=== PATIENT | female | born 2000 | race Two or more races ===

== ENCOUNTER → 2024-07-29 | Outpatient (CLI) | payer OTHER ==
[2024-07-29 13:07] LABS: Basophils # (auto) 0 10 ^3/uL (0-0.2); Basophils % (auto) 0.2 % (0.0-2.0); Eosinophils # (auto) 0 10 ^3/uL (0-0.8); Eosinophils % (auto) 0.4 % (0.0-7.0); Hematocrit 41.8 % (36.0-46.0); Hemoglobin 14.3 g/dL (12.2-16.2); Lymphocytes # (auto) 2.8 10 ^3/uL (0.4-5.4); Lymphocytes % (auto) 23.1 % (10.0-50.0); Mean Corpuscular Hemoglobin 30.4 pg (28.0-32.0); Mean Corpuscular Hgb Conc. 34.2 g/dL (32.0-36.0); Mean Corpuscular Volume 89.1 fL (80.0-100.0); Monocytes # (auto) 0.8 10 ^3/uL (0-1.3); Neutrophils # (auto) 8.3 10 ^3/uL (1.6-8.6); Neutrophils % (auto) 69.3 % (37.0-80.0); Platelet Count (auto) 313 10^3/uL (140-450); Red Cell Distribution Width 13.8 % (11.8-14.3); White Blood Cell 11.9 10^3/uL (4.4-10.8)
[2024-07-29 14:20] LABS: Amphetamine Screen, Urine Neg (NEGATIVE)
[2024-07-29 14:22] LABS: Barbiturate Scree,Urine Neg (NEGATIVE); Benzodiazephine Screen, Urine Neg (NEGATIVE)
[2024-07-29 14:23] LABS: Cannabinoid Screen, Urine Neg (NEGATIVE); Cocaine Screen, Urine Neg (NEGATIVE); Opiate Scree,Urine Neg (NEGATIVE); Phencyclidine Screen, Urine Neg (NEGATIVE)
[2024-07-30 07:07] LABS: RPR Non Reactive (Non Reactive)
[2024-07-31 06:06] LABS: Chlamydia Trachomatis, NAA Negative (Negative)
[2024-07-31 06:07] LABS: Neisseria gonorrhoeae, NAA Negative (Negative)
== END | disposition home or self-care (01) ==
LOC: LAB 12:21
PROVIDERS: ATTEND Obstetrics & Gynecology
DX: Z34.80 Encounter for supervision of other normal pregnancy, unspecified trimester (principal); N39.0 Urinary tract infection, site not specified
CPT/HCPCS: 36415; 80307; 83036; 84144; 84702; 85025; 86592; 86703; 86762; 86850; 86900; 86901; 87086; 87340

== ENCOUNTER → 2024-09-14 | Outpatient (CLI) | payer OTHER | END | disposition home or self-care (01) | LOC: LAB 08:31 | PROVIDERS: ATTEND Obstetrics & Gynecology | DX: Z34.80 Encounter for supervision of other normal pregnancy, unspecified trimester (principal) | CPT/HCPCS: 82951 ==

== ENCOUNTER 2024-12-17 10:05 | Observation (INO) | payer OTHER ==
[2024-12-17] MEDS ORDERED: GLYB2.5T8 PO (10:53)
[2024-12-17] MEDS ORDERED: PREN-96 PO (10:53)
[2024-12-17] MEDS ORDERED: METF-370 PO (10:53)
--- NOTE | 2024-12-18 05:49 | DVHDS2 ---
Physician Discharge Progress N Final Diagnosis: GDM Operations or Procedures: Operations or Procedures NST,SONO Condition on Discharge: Good Disposition: Home Discharge Instructions: Diet: Consistent carbohydrate Activity: No Restrictions, As Tolerated Medications: NA Follow Up Care: Specialist: 4D Discharge Statement: "Patient was advised to return to the ER or call 911 if any headaches, dizziness, shortness of breath, chest pain, abdominal pain, bleeding, fevers, or worsening of medical condition. Patient was counseled about treatment plan, medications, possible side effects, patientverbalized understanding. All questions were answered to the best of my ability. This discharge took greater then 30 minutes in planning, reviewing documentation, counseling the patient, and discussing with other team members." Visit Coding OBGYN Date of Service: Dec 17, 2024 Billing Provider: ETIENNE BARRIENTOS DO COURT CRIER Common Visit Codes: 04616-SJS/OBS SAME DATE (HIGH) COURT CRIER Procedure Codes: 06672-16- NON-STRESS TEST ETIENNE BARRIENTOS DO Dec 18, 2024 05:49
== END 2024-12-17 11:05 | disposition home or self-care (01) ==
LOC: LDRP 10:05 → UNDOADMOB 10:05 → LDRP 10:26 → UNDODISOB 11:05
PROVIDERS: ADMIT Obstetrics & Gynecology; ATTEND Obstetrics & Gynecology
DX: O24.419 Gestational diabetes mellitus in pregnancy, unspecified control (principal); Z3A.29 29 weeks gestation of pregnancy; Z79.899 Other long term (current) drug therapy; Z98.890 Other specified postprocedural states
CPT/HCPCS: 59025; 81002; 82948; 82962; 94760; G0378

== ENCOUNTER 2024-12-21 14:54 | Observation (INO) | payer OTHER ==
[~2024-12-21 14:54] MED LIST: GLYB2.5T8 PO; METF-370 PO; PREN-96 PO
--- NOTE | 2024-12-21 16:37 | DVHDS2 ---
Physician Discharge Progress N Final Diagnosis: Gestational diabetes Operations or Procedures: Operations or Procedures NST Condition on Discharge: Stable Disposition: Home Discharge Instructions: Diet: Consistent carbohydrate Activity: No Restrictions, As Tolerated Follow Up/Referral: as scheduled Medications: N/A Follow Up Care: Discharge Statement: "Patient was advised to return to the ER or call 911 if any headaches, dizziness, shortness of breath, chest pain, abdominal pain, bleeding, fevers, or worsening of medical condition. Patient was counseled about treatment plan, medications, possible side effects, patientverbalized understanding. All questions were answered to the best of my ability. This discharge took greater then 30 minutes in planning, reviewing documentation, counseling the patient, and discussing with other team members." Visit Coding OBGYN Date of Service: Dec 21, 2024 Billing Provider: IOANA COUGHLIN DO CONTROL OFFICER Common Visit Codes: 40607-IZH/OBS SAME DATE (MOD) CONTROL OFFICER Procedure Codes: 92083-86- NON-STRESS TEST IOANA COUGHLIN DO Dec 21, 2024 16:37
== END 2024-12-21 15:52 | disposition home or self-care (01) ==
LOC: UNDOADMOB 14:54 → LDRP 14:54 → UNDODISOB 15:52
PROVIDERS: ADMIT Obstetrics & Gynecology; ATTEND Obstetrics & Gynecology
DX: O24.419 Gestational diabetes mellitus in pregnancy, unspecified control (principal); Z98.890 Other specified postprocedural states; Z79.899 Other long term (current) drug therapy; Z3A.30 30 weeks gestation of pregnancy
CPT/HCPCS: 59025; 81002; 82948; 82962; 94760; G0378

== ENCOUNTER 2024-12-24 12:39 | Observation (INO) | payer OTHER ==
--- NOTE | 2024-12-24 15:54 | DVHDS2 ---
Physician Discharge Progress N Final Diagnosis: 30 wks gest with gdm Operations or Procedures: Operations or Procedures nst30 wks,sono Condition on Discharge: Good Disposition: Home Discharge Instructions: Diet: Consistent carbohydrate Activity: No Restrictions, As Tolerated Medications: na Follow Up Care: Specialist: 1w Discharge Statement: "Patient was advised to return to the ER or call 911 if any headaches, dizziness, shortness of breath, chest pain, abdominal pain, bleeding, fevers, or worsening of medical condition. Patient was counseled about treatment plan, medications, possible side effects, patientverbalized understanding. All questions were answered to the best of my ability. This discharge took greater then 30 minutes in planning, reviewing documentation, counseling the patient, and discussing with other team members." Visit Coding OBGYN Date of Service: Dec 24, 2024 Billing Provider: ETIENNE BARRIENTOS DO LION TAMER Common Visit Codes: 92353-RJW/OBS SAME DATE (HIGH), 84177-TQL/OBS DISCH DAY >30MIN LION TAMER Consultation Codes: 47729-[id number] CONSULT <55MIN LION TAMER Procedure Codes: 48154-27- NON-STRESS TEST ETIENNE BARRIENTOS DO Dec 24, 2024 15:54
== END 2024-12-24 16:05 | disposition home or self-care (01) ==
LOC: LDRP 14:57
PROVIDERS: ADMIT Obstetrics & Gynecology; ATTEND Obstetrics & Gynecology
DX: O24.419 Gestational diabetes mellitus in pregnancy, unspecified control (principal); Z98.890 Other specified postprocedural states; Z79.899 Other long term (current) drug therapy; Z3A.30 30 weeks gestation of pregnancy
CPT/HCPCS: 59025; 81002; 82948; 82962; 94760; G0378

== ENCOUNTER 2024-12-24 15:29 | Observation (INO) | payer OTHER ==
--- NOTE | 2024-12-28 15:59 | DVHDS2 ---
Physician Discharge Progress N Final Diagnosis: GDM Secondary Diagnosis: Encounter for NST Operations or Procedures: Operations or Procedures NST Condition on Discharge: Stable Disposition: Home Discharge Instructions: Diet: Consistent carbohydrate Activity: No Restrictions, As Tolerated Follow Up/Referral: As scheduled Medications: N/A Follow Up Care: Discharge Statement: "Patient was advised to return to the ER or call 911 if any headaches, dizziness, shortness of breath, chest pain, abdominal pain, bleeding, fevers, or worsening of medical condition. Patient was counseled about treatment plan, medications, possible side effects, patientverbalized understanding. All questions were answered to the best of my ability. This discharge took greater then 30 minutes in planning, reviewing documentation, counseling the patient, and discussing with other team members." Visit Coding OBGYN Date of Service: Dec 28, 2024 Billing Provider: IOANA COUGHLIN DO MAIL OFFICER Common Visit Codes: 62427-DHS/OBS SAME DATE (MOD) MAIL OFFICER Procedure Codes: 33636-74- NON-STRESS TEST IOANA COUGHLIN DO Dec 28, 2024 15:59
== END 2024-12-28 16:01 | disposition home or self-care (01) ==
LOC: LDRP 15:29 → UNDOADMOB 12-28 15:02 → LDRP 12-28 15:02 → UNDODISOB 12-28 16:01
PROVIDERS: ADMIT Obstetrics & Gynecology; ATTEND Obstetrics & Gynecology
DX: O24.419 Gestational diabetes mellitus in pregnancy, unspecified control (principal); Z98.890 Other specified postprocedural states; Z79.899 Other long term (current) drug therapy; Z3A.31 31 weeks gestation of pregnancy
CPT/HCPCS: 59025; 81002; 82948; 82962; 94760; G0378

== ENCOUNTER 2024-12-29 14:19 | Observation (INO) | payer OTHER ==
[2024-12-29 15:46] LABS: Basophils # (auto) 0 10 ^3/uL (0-0.2); Basophils % (auto) 0.1 % (0.0-2.0); Eosinophils # (auto) 0 10 ^3/uL (0-0.8); Eosinophils % (auto) 0.4 % (0.0-7.0); Hematocrit 35.1 % (36.0-46.0); Hemoglobin 11.4 g/dL (12.2-16.2); Lymphocytes # (auto) 1.3 10 ^3/uL (0.4-5.4); Lymphocytes % (auto) 12.4 % (10.0-50.0); Mean Corpuscular Hemoglobin 27.9 pg (28.0-32.0); Mean Corpuscular Hgb Conc. 32.5 g/dL (32.0-36.0); Mean Corpuscular Volume 85.8 fL (80.0-100.0); Monocytes # (auto) 0.8 10 ^3/uL (0-1.3); Monocytes % (auto) 7.2 % (0.0-12.0); Neutrophils # (auto) 8.4 10 ^3/uL (1.6-8.6); Neutrophils % (auto) 79.9 % (37.0-80.0); Nucleated Red Blood Cells % 0.1 %; Platelet Count (auto) 291 10^3/uL (140-450); Red Blood Cells 4.09 10^6/uL (4.0-5.20); Red Cell Distribution Width 15.6 % (11.8-14.3); White Blood Cell 10.5 10^3/uL (4.4-10.8)
[2024-12-29 15:58] LABS: Alanine Aminotransferase 12 U/L (7-40); Albumin 4.1 g/dL (3.2-4.8); Alkaline Phosphatase 85 U/L (46-116); Anion Gap 9 (5-15); BUN/Creatinine Ratio 12.8 (10.0-20.0); Calcium 9.4 mg/dL (8.7-10.4); Carbon Dioxide 23 mmol/L (20-31); Chloride 104 mmol/L (98-107); Glucose 99 mg/dL (74-106); Potassium 3.7 mmol/L (3.5-5.1); Sodium 136 mmol/L (136-145); Uric Acid 3.2 mg/dL (3.1-7.8)
[2024-12-29 15:59] LABS: Bilirubin, Total 0.3 mg/dL (0.2-1.0); Total Protein 6.4 g/dL (5.7-8.2)
[2024-12-29 16:02] LABS: INR 0.97 (0.9-1.15); Partial Thromboplastin Time 28.5 SEC (24.5-34.5); Prothrombin Time 10.3 sec (9.3-11.8)
[2024-12-29 16:06] LABS: Aspartate Aminotransferase 11 U/L (13-40); Blood Urea Nitrogen 6 mg/dL (9-23)
[2024-12-29 16:32] LABS: Urine Bacteria MOD /hpf (None Seen); Urine Blood Negative /uL (Negative); Urine Budding Yeast OCCASIONAL /hpf (None Seen); Urine Clarity Turbid (Clear); Urine Color Colorless (Yellow); Urine Hyaline Cast FEW /lpf (0 - 2); Urine Protein, UAD Negative (Negative); Urine Specific Gravity 1.007 (1.001-1.035); Urine Squamous Epithelial Cell FEW /hpf (<5); Urine Urobilinogen Normal (Negative); Urine WBC 7 /HPF (0-5); Urine pH 6.5 (5.0-9.0)
[2024-12-29 16:48] LABS: Urine Protein/Creatinine Ratio 0.14
[2024-12-29 16:53] LABS: Protein, Urine < 6.0 mg/dL (1-14)
--- NOTE | 2024-12-29 19:50 | DVHDS2 ---
Physician Discharge Progress N Final Diagnosis: testing for GDM, A2 Secondary Diagnosis: rule out preE Operations or Procedures: Operations or Procedures 24yo IUP@31wks, +FM, denies UCs/LOF/VB/SAAVEDRA/vision changes/RUQ pain NST reactive (verified by 2 RNs) VSS, see chart [facility]KC/PTL/PreE precautions reviewed D/C home and return on 12/31/24 with [address] Perez consulted, agrees with POC. Urine P/C ratio: incalculable Laboratory Tests Test 12/29/24 15:00 12/29/24 15:18 12/29/24 15:20 Range/Units Urine Color Colorless Yellow Urine Clarity Turbid H Clear Urine pH 6.5 5.0-9.0 Urine Specific [place] 1.007 1.001-1.035 Urine Protein Negative Negative Urine Ketones Negative Negative Urine Blood Negative Negative /uL Urine Nitrite Negative Negative Urine Bilirubin Negative Negative Urine Urobilinogen Normal Negative mg/dL Urine Leukocyte Esterase Negative Negative /uL Urine RBC 2 0 - 4 /hpf Urine Microscopic WBC 7 H 0-5 /HPF Urine Squamous Epithelial Cells Few <5 /hpf Urine Bacteria Mod H None Seen /hpf Urine Hyaline Casts Few 0 - 2 /lpf Urine Yeast (Budding) Occasional None Seen /hpf Urine Creatinine 42.60 30.0-125.0 mg/dL -U-r-i--n-e- -H-c-a-t-e-i-n-/-A-x-c-w-i-o-n-i-n-e- -R-a-t-i-o- -0-.-1-4- Urine Glucose Normal Normal mg/dL Urine Total Protein < 6.0 1-14 mg/dL White Blood Count 10.5 4.4-10.8 10^3/uL Red Blood Count 4.09 4.0-5.20 10^6/uL Hemoglobin 11.4 L 12.2-16.2 g/dL Hematocrit 35.1 L 36.0-46.0 % Mean Corpuscular Volume 85.8 80.0-100.0 fL Mean Corpuscular Hemoglobin 27.9 L 28.0-32.0 pg Mean Corpuscular Hemoglobin Concent 32.5 32.0-36.0 g/dL Red Cell Distribution Width 15.6 H 11.8-14.3 % Platelet Count 291 140-450 10^3/uL Mean Platelet Volume 7.0 6.9-10.8 fL Neutrophils (%) (Auto) 79.9 37.0-80.0 % Lymphocytes (%) (Auto) 12.4 10.0-50.0 % Monocytes (%) (Auto) 7.2 0.0-12.0 % Eosinophils (%) (Auto) 0.4 0.0-7.0 % Basophils (%) (Auto) 0.1 0.0-2.0 % Neutrophils # (Auto) 8.4 1.6-8.6 10 ^3/uL Lymphocytes # (Auto) 1.3 0.4-5.4 10 ^3/uL Monocytes # (Auto) 0.8 0-1.3 10 ^3/uL Eosinophils # (Auto) 0 0-0.8 10 ^3/uL Basophils # (Auto) 0 0-0.2 10 ^3/uL Nucleated Red Blood Cells 0.1 % Prothrombin Time 10.3 9.3-11.8 sec Prothrombin Time INR 0.97 0.9-1.15 Activated Partial Thromboplast Time 28.5 24.5-34.5 SEC Sodium Level 136 136-145 mmol/L Potassium Level 3.7 3.5-5.1 mmol/L Chloride Level 104 98-107 mmol/L Carbon Dioxide Level 23 20-31 mmol/L Anion Gap 9 5-15 Blood Urea Nitrogen 6 L 9-23 mg/dL Creatinine 0.47 L 0.550-1.02 mg/dL Glomerular Filtration Rate Calc 135 >90 mL/min BUN/Creatinine Ratio 12.8 10.0-20.0 Serum Glucose 99 74-106 mg/dL Hemoglobin A1c 4.9 <5.7 % A1C Uric Acid 3.2 3.1-7.8 mg/dL Calcium Level 9.4 8.7-10.4 mg/dL Total Bilirubin 0.3 0.2-1.0 mg/dL Aspartate Amino Transferase (AST) 11 L 13-40 U/L Alanine Aminotransferase (ALT) 12 7-40 U/L Alkaline Phosphatase 85 46-116 U/L Total Protein 6.4 5.7-8.2 g/dL Albumin 4.1 3.2-4.8 g/dL POC Glucose 100 70-106 mg/dl Condition on Discharge: Stable Disposition: Home Discharge Instructions: Diet: Consistent carbohydrate Activity: No Restrictions, As Tolerated Follow Up/Referral: as scheduled Medications: see med list Follow Up Care: Specialist: f/u on 12/31/24 Discharge Statement: "Patient was advised to return to the ER or call 911 if any headaches, dizziness, shortness of breath, chest pain, abdominal pain, bleeding, fevers, or worsening of medical condition. Patient was counseled about treatment plan, medications, possible side effects, patientverbalized understanding. All questions were answered to the best of my ability. This discharge took greater then 30 minutes in planning, reviewing documentation, counseling the patient, and discussing with other team members." Visit Coding OBGYN Date of Service: Dec 29, 2024 Billing Provider: ALVARADO ESPINO CNM METAL WORKER Common Visit Codes: 72274-INGHKCZ OBS CARE (HIGH) ALVARADO ESPINO CNM Dec 29, 2024 19:50
== END 2024-12-29 17:16 | disposition home or self-care (01) ==
LOC: LDRP 14:19
PROVIDERS: ADMIT Obstetrics & Gynecology; ATTEND Obstetrics & Gynecology
DX: O24.419 Gestational diabetes mellitus in pregnancy, unspecified control (principal); R79.1 Abnormal coagulation profile; Z3A.31 31 weeks gestation of pregnancy; Z79.899 Other long term (current) drug therapy; Z98.890 Other specified postprocedural states
CPT/HCPCS: 36415; 59025; 80053; 81001; 81002; 82570; 82948; 82962; 83036; 84156; 84550; 85025; 85610; 85730; 94760; G0378

== ENCOUNTER 2024-12-31 12:02 | Observation (INO) | payer OTHER ==
[~2024-12-31] VITALS: Ht 170.2 cm; Wt 128.4 kg
[2024-12-31 18:47] LABS: Protein, Urine < 6.0 mg/dL (1-14)
[2024-12-31 18:49] LABS: Creatinine, Urine 94.32 mg/dL (30.0-125.0); Urine Protein/Creatinine Ratio 0.06
--- NOTE | 2025-01-01 09:48 | DVHDS2 ---
Physician Discharge Progress N Final Diagnosis: gdm 31wks,pih Operations or Procedures: Operations or Procedures nst 31 wks,pih ,gdm Condition on Discharge: Good Disposition: Home Discharge Instructions: Diet: Regular Activity: Light activity Medications: na Follow Up Care: Specialist: 3d Discharge Statement: "Patient was advised to return to the ER or call 911 if any headaches, dizziness, shortness of breath, chest pain, abdominal pain, bleeding, fevers, or worsening of medical condition. Patient was counseled about treatment plan, medications, possible side effects, patientverbalized understanding. All questions were answered to the best of my ability. This discharge took greater then 30 minutes in planning, reviewing documentation, counseling the patient, and discussing with other team members." Visit Coding OBGYN Date of Service: Dec 31, 2024 Billing Provider: ETIENNE BARRIENTOS DO EDUCATION AND OUTREACH COORDINATOR Common Visit Codes: 20584-PEAAZCU INP/OBS CARE (HIGH) EDUCATION AND OUTREACH COORDINATOR Procedure Codes: 40778-12- NON-STRESS TEST ETIENNE BARRIENTOS DO Jan 01, 2025 09:48
== END 2024-12-31 17:18 | disposition home or self-care (01) ==
LOC: LDRP 15:10 → UNDOADMOB 15:10 → LDRP 15:20 → UNDODISOB 17:18
PROVIDERS: ADMIT Obstetrics & Gynecology; ATTEND Obstetrics & Gynecology
DX: O13.3 Gestational [pregnancy-induced] hypertension without significant proteinuria, third trimester (principal); O24.419 Gestational diabetes mellitus in pregnancy, unspecified control; Z3A.31 31 weeks gestation of pregnancy; Z79.899 Other long term (current) drug therapy; Z98.890 Other specified postprocedural states
CPT/HCPCS: 59025; 81002; 82570; 82948; 82962; 84156; 94760; G0378

== ENCOUNTER 2025-01-04 07:49 | Observation (INO) | payer OTHER ==
--- NOTE | 2025-01-04 15:56 | DVH ---
BIOPHYSICAL PROFILE HISTORY: gdma1 Comparison Study: None TECHNIQUE: Multiple real-time grayscale sonographic images through the gravid uterus of the fetus wi th duplex Doppler color flow and M-mode spectral analysis FINDINGS: BIOPHYSICAL PROFILE: breathing score: 2 movement score: 2 tone score: 2 Quantitative TYSON score: 2 (TYSON: 19.7 Cm.) Total score: 8 The cervix is not visualized Single live fetus in cephalic presentation. heart rate 132 beats per minute. Cephalic placenta without previa or abruption IMPRESSION: Biophysical profile score: 8
--- NOTE | 2025-01-04 16:29 | DVHDS2 ---
Physician Discharge Progress N Final Diagnosis: GDMA2 Operations or Procedures: Operations or Procedures NST/BPP TYSON PATIENT: CARLITOS ARENAS NACCT: [id number] UNIT: [id number] : 2000 LOC: [facility] ROOM / BED: TRIAGE2 / A AGE / SEX: 24 / F ADM STATUS: ADM IN SERVICE 1514 ORDERING PHYSICIAN: IOANA COUGHLIN DO PROCEDURE(s): BPP - BIOPHYSICAL PROFILE REASON: gdma1 ORDER NUMBER(s): [id number], ACCESSION NUMBER(s): [id number] BIOPHYSICAL PROFILE HISTORY: gdma1 Comparison Study: None TECHNIQUE: Multiple real-time grayscale sonographic images through the gravid uterus of the fetus with duplex Doppler color flow and M-mode spectral analysis FINDINGS: BIOPHYSICAL PROFILE: breathing score: 2 movement score: 2 tone score: 2 Quantitative TYSON score: 2 (TYSON: 19.7 Cm.) Total score: 8 The cervix is not visualized Single live fetus in cephalic presentation. heart rate 132 beats per minute. Cephalic placenta without previa or abruption IMPRESSION: Biophysical profile score: 8 Condition on Discharge: Stable Disposition: Home Discharge Instructions: Diet: Consistent carbohydrate Activity: No Restrictions, As Tolerated Follow Up/Referral: as scheduled Medications: no new meds Follow Up Care: Discharge Statement: "Patient was advised to return to the ER or call 911 if any headaches, dizziness, shortness of breath, chest pain, abdominal pain, bleeding, fevers, or worsening of medical condition. Patient was counseled about treatment plan, medications, possible side effects, patientverbalized understanding. All questions were answered to the best of my ability. This discharge took greater then 30 minutes in planning, reviewing d ocumentation, counseling the patient, and discussing with other team members." Visit Coding OBGYN Date of Service: Jan 04, 2025 Billing Provider: IOANA COUGHLIN DO DIVISION SUPERINTENDENT Common Visit Codes: 27850-XVQ/OBS SAME DATE (HIGH) DIVISION SUPERINTENDENT Procedure Codes: 68851-85- NON-STRESS TEST IOANA COUGHLIN DO Jan 04, 2025 16:29
== END 2025-01-04 16:24 | disposition home or self-care (01) ==
LOC: LDRP 15:11 → UNDOADMOB 15:11 → LDRP 15:15 → UNDODISOB 16:24
PROVIDERS: ADMIT Obstetrics & Gynecology; ATTEND Obstetrics & Gynecology
DX: O24.419 Gestational diabetes mellitus in pregnancy, unspecified control (principal); Z98.890 Other specified postprocedural states; Z79.899 Other long term (current) drug therapy; Z3A.32 32 weeks gestation of pregnancy
CPT/HCPCS: 76818; 81002; 82948; 82962; 94760; G0378; 59025

== ENCOUNTER 2025-01-07 06:31 | Observation (INO) | payer OTHER ==
[2025-01-07 15:46] LABS: Basophils # (auto) 0 10 ^3/uL (0-0.2); Basophils % (auto) 0.3 % (0.0-2.0); Eosinophils # (auto) 0 10 ^3/uL (0-0.8); Eosinophils % (auto) 0.4 % (0.0-7.0); Hematocrit 34.5 % (36.0-46.0); Hemoglobin 11.3 g/dL (12.2-16.2); Lymphocytes # (auto) 1.8 10 ^3/uL (0.4-5.4); Lymphocytes % (auto) 17.5 % (10.0-50.0); Mean Corpuscular Hemoglobin 28.1 pg (28.0-32.0); Mean Corpuscular Hgb Conc. 32.7 g/dL (32.0-36.0); Monocytes # (auto) 0.8 10 ^3/uL (0-1.3); Monocytes % (auto) 8.1 % (0.0-12.0); Neutrophils # (auto) 7.7 10 ^3/uL (1.6-8.6); Neutrophils % (auto) 73.7 % (37.0-80.0); Platelet Count (auto) 293 10^3/uL (140-450); Red Blood Cells 4.01 10^6/uL (4.0-5.20); Red Cell Distribution Width 15.7 % (11.8-14.3); White Blood Cell 10.4 10^3/uL (4.4-10.8)
[2025-01-07 15:50] LABS: Urine Bacteria FEW /hpf (None Seen); Urine Blood Negative /uL (Negative); Urine Clarity Turbid (Clear); Urine Color Yellow (Yellow); Urine Mucus FEW (None Seen); Urine Protein, UAD 1+ (Negative); Urine Specific Gravity 1.031 (1.001-1.035); Urine Squamous Epithelial Cell FEW /hpf (<5); Urine Urobilinogen Normal (Negative); Urine WBC 6 /HPF (0-5)
--- NOTE | 2025-01-07 15:50 | DVH ---
BIOPHYSICAL PROFILE HISTORY: GDMA2 TECHNIQUE: Multiple transabdominal real-time grayscale sonographic images through the gravid uterus of the fetus with duplex Doppler color flow and M-mode spectral analysis FINDINGS: BIOPHYSICAL PROFILE: breathing score: 2 movement score: 2 tone score: 2 Quantitative TYSON score: 2 (TYSON: 21.6 Cm.) Total score: 8/8 The cervix not measured Single live fetus in cephalic presentation. heart rate 155 beats per minute. Anterior Grade 2 placenta without previa or abruption Single live fetus at 32 weeks 4 days Biophysical profile score 8/8 corresponding to an JIMMY of 02/28/2025 IMPRESSION: 1. Biophysical profile score: 8/8
[2025-01-07 15:54] LABS: Protein, Urine 16.1 mg/dL (1-14)
[2025-01-07 15:57] LABS: Creatinine, Urine 181.08 mg/dL (30.0-125.0); Urine Protein/Creatinine Ratio 0.09
[2025-01-07 15:59] LABS: INR 0.97 (0.9-1.15); Partial Thromboplastin Time 27.2 SEC (24.5-34.5); Prothrombin Time 10.3 sec (9.3-11.8)
[2025-01-07 16:19] LABS: Alanine Aminotransferase 14 U/L (7-40); Albumin 4.2 g/dL (3.2-4.8); Alkaline Phosphatase 96 U/L (46-116); Anion Gap 9 (5-15); BUN/Creatinine Ratio 15.2 (10.0-20.0); Calcium 9.5 mg/dL (8.7-10.4); Carbon Dioxide 22 mmol/L (20-31); Chloride 106 mmol/L (98-107); Glucose 91 mg/dL (74-106); Sodium 137 mmol/L (136-145); Total Protein 6.8 g/dL (5.7-8.2)
[2025-01-07 16:36] LABS: Aspartate Aminotransferase 13 U/L (13-40); Bilirubin, Total 0.2 mg/dL (0.2-1.0); Blood Urea Nitrogen 7 mg/dL (9-23)
--- NOTE | 2025-01-08 15:08 | DVHDS2 ---
Physician Discharge Progress N Final Diagnosis: gdm,32wks Operations or Procedures: Operations or Procedures nst32 wks,sono Condition on Discharge: Good Disposition: Home Discharge Instructions: Diet: Regular, Consistent carbohydrate Activity: No Restrictions, As Tolerated Medications: na Follow Up Care: Specialist: 3d Discharge Statement: "Patient was advised to return to the ER or call 911 if any headaches, dizziness, shortness of breath, chest pain, abdominal pain, bleeding, fevers, or worsening of medical condition. Patient was counseled about treatment plan, medications, possible side effects, patientverbalized understanding. All questions were answered to the best of my ability. This discharge took greater then 30 minutes in planning, reviewing documentation, counseling the patient, and discussing with other team members." Visit Coding OBGYN Date of Service: Jan 07, 2025 Billing Provider: ETIENNE BARRIENTOS DO EKG/ECG TECHNICIAN Common Visit Codes: 74778-[id number] INP/OBS CARE (HIGH) EKG/ECG TECHNICIAN Procedure Codes: 74910-99- NON-STRESS TEST ETIENNE BARRIENTOS DO Jan 08, 2025 15:07
== END 2025-01-07 17:15 | disposition home or self-care (01) ==
LOC: LDRP 14:55 → UNDOADMOB 14:55 → LDRP 15:05
PROVIDERS: ADMIT Obstetrics & Gynecology; ATTEND Obstetrics & Gynecology
DX: O24.419 Gestational diabetes mellitus in pregnancy, unspecified control (principal); R79.1 Abnormal coagulation profile; Z3A.32 32 weeks gestation of pregnancy; Z79.899 Other long term (current) drug therapy
CPT/HCPCS: 36415; 76818; 80053; 81001; 82570; 82962; 84156; 84550; 85025; 85610; 85730; 94760; G0378; 59025

== ENCOUNTER 2025-01-11 11:50 | Observation (INO) | payer OTHER ==
--- NOTE | 2025-01-11 17:09 | DVH ---
EXAM: US BIOPHYSICAL PROFILE HISTORY: GDM COMPARISON: US BIOPHYSICAL PROFILE on DOS: 01/07/25, US BIOPHYSICAL PROFILE on DOS: 01/04/25 TECHNIQUE: Multiple transabdominal real-time grayscale sonographic images through the gravid uterus of the fetus with duplex Doppler color flow and M-mode spectral analysis Findings/Impression: Single live intrauterine in vertex presentation with heart rate of 139 bpm. Biophysical profile was performed with 2 points for respirations, 2 points for movement, 2 points for tone and 2 points for amniotic fluid index. Biophysical profile score of 8/8. Amniotic fluid is within the upper limits of normal with TYSON 22.3 cm and MVP 8.0 cm. Normal TYSON (5-25 cm) Normal MVP (2-8 cm)
--- NOTE | 2025-01-12 00:13 | DVHDS2 ---
Discharge Summary Date of Admission Jan 11, 2025 at 15:18 Date of Discharge: Jan 11, 2025 Admitting Diagnosis 33 wks GDMA2 Wounds: none Labs/Diagnostic Data: Laboratory Results Test 01/11/25 17:10 POC Glucose 78 mg/dl (70-106) Brief Hx & Hospital Course: nst bpp Consults/Reason for consult none Operations or Procedures none Condition at Discharge: Good Final Diagnosis/Problems List GDMA 2 33 wks Discharge Disposition: Home SNF Discharge Will this Physician continue t: No Discharge Instruct/Medications Diet: Consistent carbohydrate Activity: No Restrictions, As Tolerated Activity comment: pelvic rest kick counts labor precautions Discharge Statement: "Patient was advised to return to the ER or call 911 if any headaches, dizziness, shortness of breath, chest pain, abdominal pain, bleeding, fevers, or worsening of medical condition. Patient was counseled about treatment plan, medications, possible side effects, patientverbalized understanding. All questions were answered to the best of my ability. This discharge took greater then 30 minutes in planning, reviewing documentation, counseling the patient, and discussing with other team members." ASSESSMENT ASSESSMENT Assessment Visit Coding OBGYN Date of Service: Jan 11, 2025 Billing Provider: RU RAPHAEL DO VIDEO TAPE DUPLICATOR Common Visit Codes: 64559-FTA/OBS SAME DATE (LOW), 83684-ZGH/OBS SAME DATE (MOD), 07026-MCY/OBS SAME DATE (HIGH) VIDEO TAPE DUPLICATOR Procedure Codes: 96244-78- NON-STRESS TEST RU RAPHAEL DO Jan 12, 2025 00:13
== END 2025-01-11 17:29 | disposition home or self-care (01) ==
LOC: UNDOADMOB 15:18 → LDRP 15:18 → UNDODISOB 17:29
PROVIDERS: ADMIT Obstetrics & Gynecology; ATTEND Obstetrics & Gynecology
DX: O24.419 Gestational diabetes mellitus in pregnancy, unspecified control (principal); Z98.890 Other specified postprocedural states; Z79.899 Other long term (current) drug therapy; Z3A.33 33 weeks gestation of pregnancy
CPT/HCPCS: 76818; 81002; 82948; 82962; G0378; 59025; 76819

== ENCOUNTER 2025-01-14 06:21 | Observation (INO) | payer OTHER ==
--- NOTE | 2025-01-14 17:19 | DVH ---
EXAM: US BIOPHYSICAL PROFILE HISTORY: GDMA2 COMPARISON: US BIOPHYSICAL PROFILE on DOS: 01/11/25, US BIOPHYSICAL PROFILE on DOS: 01/07/25, US BIOPHYS ICAL PROFILE on DOS: 01/04/25 TECHNIQUE: Multiple transabdominal real-time grayscale sonographic images through the gravid uterus of the fetus with duplex Doppler color flow and M-mode spectral analysis Findings/Impression: Single live intrauterine in vertex presentation with heart rate of 126 bpm. Biophysical profile was performed with 2 points for respirations, 2 points for movement, 2 points for tone and 2 points for amniotic fluid index. Biophysical profile score of 8/8. Amniotic fluid is within the upper limits of normal with TYSON 23.7 cm and MVP 7.5 cm. Normal TYSON (5-25 cm) Normal MVP (2-8 cm)
--- NOTE | 2025-01-14 21:35 | DVHDS2 ---
Physician Discharge Progress N Final Diagnosis: testing for GDM, A2 Operations or Procedures: Operations or Procedures 24yo IUP@33.4wks VSS NST reactive FKC/PTL precautions reviewed Dr. Perez consulted, agrees with POC. Other Interventions Other Interventions [address] [address] Ph: [phone] DIAGNOSTIC IMAGING Diagnostic Imaging Report : [id number] Signed PATIENT: CARLITOS ARENAS NACCT: [id number] UNIT: [id number] : 2000 LOC: [facility] ROOM / BED: LD1 / A AGE / SEX: 24 / F ADM STATUS: ADM IN SERVICE 1610 ORDERING PHYSICIAN: ALVARADO ESPINO CNM PROCEDURE(s): BPP - BIOPHYSICAL PROFILE REASON: GDMA2 ORDER NUMBER(s): [id number], ACCESSION NUMBER(s): [id number] EXAM: US BIOPHYSICAL PROFILE HISTORY: GDMA2 COMPARISON: US BIOPHYSICAL PROFILE on DOS: 01/11/25, US BIOPHYSICAL PROFILE on DOS: 01/07/25, US BIOPHYSICAL PROFILE on DOS: 01/04/25 TECHNIQUE: Multiple transabdominal real-time grayscale sonographic images through the gravid uterus of the fetus with duplex Doppler color flow and M-mode spectral analysis Findings/Impression: Single live intrauterine in vertex presentation with heart rate of 126 bpm. Biophysical profile was performed with 2 points for respirations, 2 points for movement, 2 points for tone and 2 points for amniotic fluid i ndex. Biophysical profile score of 8/8. Amniotic fluid is within the upper limits of normal with TYSON 23.7 cm and MVP 7.5 cm. Normal TYSON (5-25 cm) Normal MVP (2-8 cm) ATED BY: MELONIE PULIDO DO DICTATED DATE/TIME: 01/14/251715 SIGNED BY: MELONIE PULIDO DO SIGNED DATE/TIME: 01/14/251715 CC: Condition on Discharge: Stable Disposition: Home Discharge Instructions: Diet: Consistent carbohydrate Activity: No Restrictions, As Tolerated Medications: see med list Follow Up Care: Specialist: f/u in 3 days Discharge Statement: "Patient was advised to return to the ER or call 911 if any headaches, dizziness, shortness of breath, chest pain, abdominal pain, bleeding, fevers, or worsening of medical condition. Patient was counseled about treatment plan, medications, possible side effects, patientverbalized understanding. All questions were answered to the best of my ability. This discharge took greater then 30 minutes in planning, reviewing documentation, counseling the patient, and discussing with other team members." Visit Coding OBGYN Date of Service: Jan 14, 2025 Billing Provider: ALVARADO ESPINO CNM MACHINE ENGINEER Common Visit Codes: 01144-ZGEWJFQ OBS CARE (HIGH) MACHINE ENGINEER Procedure Codes: 34343-63- NON-STRESS TEST ALVARADO ESPINO CNM Jan 14, 2025 21:35
== END 2025-01-14 17:35 | disposition home or self-care (01) ==
LOC: LDRP 15:53
PROVIDERS: ADMIT Obstetrics & Gynecology; ATTEND Obstetrics & Gynecology
DX: O24.419 Gestational diabetes mellitus in pregnancy, unspecified control (principal); Z98.890 Other specified postprocedural states; Z79.899 Other long term (current) drug therapy; Z3A.33 33 weeks gestation of pregnancy
CPT/HCPCS: 76818; 81002; 82948; 82962; 94760; G0378; 59025; 76819

== ENCOUNTER 2025-01-18 12:11 | Observation (INO) | payer OTHER ==
--- NOTE | 2025-01-18 12:31 | DVHDS2 ---
Physician Discharge Progress N Final Diagnosis: GDMA2 Secondary Diagnosis: Encounter for surveillance Operations or Procedures: Operations or Procedures NST/BPP/ TYSON Condition on Discharge: Stable Disposition: Home Discharge Instructions: Diet: Consistent carbohydrate Activity: Light activity Follow Up/Referral: as scheduled Medications: N/A Follow Up Care: Discharge Statement: "Patient was advised to return to the ER or call 911 if any headaches, dizziness, shortness of breath, chest pain, abdominal pain, bleeding, fevers, or worsening of medical condition. Patient was counseled about treatment plan, medications, possible side effects, patientverbalized understanding. All questions were answered to the best of my ability. This discharge took greater then 30 minutes in planning, reviewing documentation, counseling the patient, and discussing with other team members." Visit Coding OBGYN Date of Service: Jan 18, 2025 Billing Provider: IOANA COUGHLIN DO RESPIRATORY CARE SPECIALIST Common Visit Codes: 62154-QXA/OBS SAME DATE (HIGH) RESPIRATORY CARE SPECIALIST Procedure Codes: 48249-99- NON-STRESS TEST IOANA COUGHLIN DO Jan 18, 2025 12:31
--- NOTE | 2025-01-18 12:57 | DVH ---
BIOPHYSICAL PROFILE HISTORY: gdma2 TECHNIQUE: Multiple transabdominal real-time grayscale sonographic images through the gravid uterus of the fetus with duplex Doppler color flow and M-mode spectral analysis FINDINGS: BIOPHYSICAL PROFILE: breathing score: 2 movement score: 2 tone score: 2 Quantitative TYSON score: 2 (TYSON: 27 Cm.) Total score: 8 The cervix not well visualized. Single live fetus in cephalic presentation. heart rate 138 beats per minute. Anterior placenta without previa or abruption IMPRESSION: Biophysical profile score: 8 Amniotic fluid index of 27 cm.
== END 2025-01-18 13:18 | disposition home or self-care (01) ==
LOC: LDRP 12:11 → UNDOADMOB 12:11 → LDRP 12:20
PROVIDERS: ADMIT Obstetrics & Gynecology; ATTEND Obstetrics & Gynecology
DX: O24.419 Gestational diabetes mellitus in pregnancy, unspecified control (principal); Z3A.34 34 weeks gestation of pregnancy; Z87.891 Personal history of nicotine dependence
CPT/HCPCS: 76819; 81002; 82948; 82962; 94760; G0378

== ENCOUNTER 2025-01-21 06:19 | Observation (INO) | payer OTHER ==
--- NOTE | 2025-01-21 12:02 | DVH ---
BIOPHYSICAL PROFILE HISTORY: GDMA2 Comparison: 01/18/2025 TECHNIQUE: Multiple transabdominal real-time grayscale sonographic images through the gravid uterus of the fetus with duplex Doppler color flow and M-mode spectral analysis FINDINGS: BIOPHYSICAL PROFILE: breathing score: 2/2 movement score: 2 tone score: 2/2 Quantitative TYSON score: 2/2 (TYSON: 22.8 Cm.) Total score: 8/8 The cervix closed Single live fetus in cephalic presentation. heart rate 138 beats per minute. anterior placenta without previa or abruption IMPRESSION: 1. Biophysical profile score: 8/8 unchanged from previous exam. Amniotic fluid index formerly measure d as 27 cm now is 22.8 cm
--- NOTE | 2025-01-22 13:02 | DVHDS2 ---
Physician Discharge Progress N Final Diagnosis: iup at 34 wks with gdm morbid obesity Operations or Procedures: Operations or Procedures nst 34 wks,sono Condition on Discharge: Good Disposition: Home Discharge Instructions: Diet: Consistent carbohydrate Activity: Light activity Medications: na Follow Up Care: Specialist: 1w Discharge Statement: "Patient was advised to return to the ER or call 911 if any headaches, dizziness, shortness of breath, chest pain, abdominal pain, bleeding, fevers, or worsening of medical condition. Patient was counseled about treatment plan, medications, possible side effects, patientverbalized understanding. All questions were answered to the best of my ability. This discharge took greater then 30 minutes in planning, reviewing documentation, counseling the patient, and discussing with other team members." Visit Coding OBGYN Date of Service: Jan 21, 2025 Billing Provider: ETIENNE BARRIENTOS DO FIBRE CEMENT MOULDER Common Visit Codes: 04105-ATNCAKM INP/OBS CARE (HIGH) FIBRE CEMENT MOULDER Procedure Codes: 40283-72- NON-STRESS TEST ETIENNE BARRIENTOS DO Jan 22, 2025 13:01
== END 2025-01-21 12:31 | disposition home or self-care (01) ==
LOC: LDRP 11:15 → UNDOADMOB 11:15 → LDRP 11:19
PROVIDERS: ADMIT Obstetrics & Gynecology; ATTEND Obstetrics & Gynecology
DX: O24.419 Gestational diabetes mellitus in pregnancy, unspecified control (principal); O99.213 Obesity complicating pregnancy, third trimester; E66.01 Morbid (severe) obesity due to excess calories; Z3A.34 34 weeks gestation of pregnancy; Z79.899 Other long term (current) drug therapy
CPT/HCPCS: 76818; 81002; 82948; 82962; 94760; G0378; 76819

== ENCOUNTER 2025-01-25 15:14 | Observation (INO) | payer OTHER ==
--- NOTE | 2025-01-25 16:40 | DVH ---
BIOPHYSICAL PROFILE HISTORY: gdma2 Comparison: 01/21/2025 TECHNIQUE: Multiple transabdominal real-time grayscale sonographic images through the gravid uterus of the fetus with duplex Doppler color flow and M-mode spectral analysis FINDINGS: BIOPHYSICAL PROFILE: breathing score: 2/2 movement score: 2/2 tone score: 2/2 Quantitative TYSON score: 2/2 (TYSON: 19 Cm.) Total score: 8/8 The cervix closed Single live fetus in cephalic presentation. heart rate 131 beats per minute. anterior placenta without previa or abruption IMPRESSION: 1. Biophysical profile score: 8/8 2. Amniotic fluid volume formerly measuring 22.8 cm now measures 19 cm
--- NOTE | 2025-01-25 23:58 | DVHDS2 ---
Discharge Summary Date of Admission Jan 25, 2025 at 15:14 Date of Discharge: Jan 25, 2025 Admitting Diagnosis GDM A1 35.1 weeks Labs/Diagnostic Data: Laboratory Results Test 01/25/25 15:56 POC Glucose 109 mg/dl (70-106) Brief Hx & Hospital Course: here for GDM A2 monitoring only Condition at Discharge: Good Final Diagnosis/Problems List 35 weeks GDMA2 Discharge Disposition: Home Discharge Instruct/Medications Diet: Consistent carbohydrate Activity: No Restrictions, As Tolerated Discharge Statement: "Patient was advised to return to the ER or call 911 if any headaches, dizzin ess, shortness of breath, chest pain, abdominal pain, bleeding, fevers, or worsening of medical condition. Patient was counseled about treatment plan, medications, possible side effects, patientverbalized understanding. All questions were answered to the best of my ability. This discharge took greater then 30 minutes in planning, reviewing documentation, counseling the patient, and discussing with other team members." DME: Diagnosis: here for GDM A2 monitoring only; reasuring ASSESSMENT ASSESSMENT Assessment Visit Coding OBGYN Date of Service: Jan 25, 2025 Billing Provider: RU RAPHAEL DO RESEARCH SPECIALIST Common Visit Codes: 53975-XPF/OBS SAME DATE (LOW), 81293-DQB/OBS SAME DATE (MOD), 97298-QZK/OBS SAME DATE (HIGH) RESEARCH SPECIALIST Procedure Codes: 22575-SGM DEL INCLUDING RU RAPHAEL DO Jan 25, 2025 23:58
== END 2025-01-25 16:49 | disposition home or self-care (01) ==
LOC: UNDOADMOB 15:14 → LDRP 15:14 → UNDODISOB 16:49
PROVIDERS: ADMIT Obstetrics & Gynecology; ATTEND Obstetrics & Gynecology
DX: O24.419 Gestational diabetes mellitus in pregnancy, unspecified control (principal); Z98.890 Other specified postprocedural states; Z79.899 Other long term (current) drug therapy; Z3A.35 35 weeks gestation of pregnancy
CPT/HCPCS: 76819; 81002; 82948; 82962; 94760; G0378

== ENCOUNTER 2025-01-28 08:14 | Observation (INO) | payer OTHER ==
--- NOTE | 2025-01-28 08:57 | DVH ---
CLINICAL HISTORY: Gestational diabetes. COMPARISON: US BIOPHYSICAL PROFILE on DOS: 01/25/25, US BIOPHYSICAL PROFILE on DOS: 01/21/25, US BIOPHY SICAL PROFILE on DOS: 01/18/25 TECHNIQUE: biophysical profile was performed. Transabdominal sonographic images of the fetus we re obtained. FINDINGS: The fetus is in cephalic position. heart rate measures 118 BPM. Amniotic fluid index measures 22.2 cm. The placenta is anterior in position without visualized evidence for placenta previ a or abruption. BPP profile is an overall score of 8/8, with 2/2 points for breathing, with at least one episode of breathing over a 30 second duration during a 30 minute observation, 2/2 points for m ovements, with 3 or more discrete body or limb movements, 2/2 points for tone, with one or more episodes of extremity extension with return to flexion, or opening and closing of hand, and 2/ 2 points for amniotic fluid, with at least 1 pocket of amniotic fluid that measures 2 cm in 2 perpend icular planes. IMPRESSION: 1. BPP score of 8/8. 2. Amniotic fluid index is 22.2.
--- NOTE | 2025-01-29 13:07 | DVHDS2 ---
Physician Discharge Progress N Final Diagnosis: GDM,MORBID OBESITY 35WKS Operations or Procedures: Operations or Procedures NST 35WKS,SONO Condition on Discharge: Good Disposition: Home Discharge Instructions: Diet: Regular, Consistent carbohydrate Activity: No Restrictions, As Tolerated Medications: NA Follow Up Care: Specialist: 4D Discharge Statement: "Patient was advised to return to the ER or call 911 if any headaches, dizziness, shortness of breath, chest pain, abdominal pain, bleeding, fevers, or worsening of medical condition. Patient was counseled about treatment plan, medications, possible side effects, patientverbalized understanding. All questions were answered to the best of my ability. This discharge took greater then 30 minutes in planning, reviewing documentation, counseling the patient, and discussing with other team members." Visit Coding OBGYN Date of Service: Jan 29, 2025 Billing Provider: ETIENNE BARRIENTOS DO MILLING MACHINIST Common Visit Codes: 74893-[id number] INP/OBS CARE (HIGH) MILLING MACHINIST Procedure Codes: 56913-37- NON-STRESS TEST ETIENNE BARRIENTOS DO Jan 29, 2025 13:07
== END 2025-01-28 09:09 | disposition home or self-care (01) ==
LOC: UNDOADMOB 08:14 → LDRP 08:14 → UNDODISOB 09:09
PROVIDERS: ADMIT Obstetrics & Gynecology; ATTEND Obstetrics & Gynecology
DX: O24.419 Gestational diabetes mellitus in pregnancy, unspecified control (principal); O99.213 Obesity complicating pregnancy, third trimester; E66.01 Morbid (severe) obesity due to excess calories; Z3A.35 35 weeks gestation of pregnancy; Z79.899 Other long term (current) drug therapy; Z98.890 Other specified postprocedural states
CPT/HCPCS: 76819; 81002; 82948; 82962; 94760; G0378

== ENCOUNTER → 2025-01-28 | Outpatient (CLI) | payer OTHER ==
[2025-01-28 10:05] LABS: Basophils # (auto) 0 10 ^3/uL (0-0.2); Basophils % (auto) 0.2 % (0.0-2.0); Eosinophils # (auto) 0 10 ^3/uL (0-0.8); Eosinophils % (auto) 0.4 % (0.0-7.0); Hemoglobin 11.1 g/dL (12.2-16.2); Lymphocytes # (auto) 1.6 10 ^3/uL (0.4-5.4); Lymphocytes % (auto) 16.3 % (10.0-50.0); Mean Corpuscular Hemoglobin 28.8 pg (28.0-32.0); Mean Corpuscular Hgb Conc. 33.8 g/dL (32.0-36.0); Mean Corpuscular Volume 85.2 fL (80.0-100.0); Monocytes # (auto) 0.6 10 ^3/uL (0-1.3); Monocytes % (auto) 6.7 % (0.0-12.0); Neutrophils # (auto) 7.3 10 ^3/uL (1.6-8.6); Neutrophils % (auto) 76.4 % (37.0-80.0); Platelet Count (auto) 289 10^3/uL (140-450); Red Blood Cells 3.87 10^6/uL (4.0-5.20); Red Cell Distribution Width 16.1 % (11.8-14.3); White Blood Cell 9.6 10^3/uL (4.4-10.8)
[2025-01-29 17:07] LABS: Chlamydia Trachomatis, NAA Negative (Negative); Neisseria gonorrhoeae, NAA Negative (Negative)
== END | disposition home or self-care (01) ==
LOC: LAB 09:32
PROVIDERS: ATTEND Obstetrics & Gynecology
DX: Z34.80 Encounter for supervision of other normal pregnancy, unspecified trimester (principal); Z72.51 High risk heterosexual behavior; Z3A.00 Weeks of gestation of pregnancy not specified
CPT/HCPCS: 36415; 85025; 86780; 86850; 86870; 86900; 86901

== ENCOUNTER 2025-02-01 08:10 | Observation (INO) | payer OTHER ==
--- NOTE | 2025-02-01 09:10 | DVH ---
BIOPHYSICAL PROFILE HISTORY: GDMA2 TECHNIQUE: Multiple transabdominal real-time grayscale sonographic images through the gravid uterus of the fetus with duplex Doppler color flow and M-mode spectral analysis FINDINGS: BIOPHYSICAL PROFILE: breathing score: 2 movement score: 2 tone score: 2 Quantitative TYSON score: 2 (TYSON: 22 Cm.) Total score: 8 The cervix was not seen Single live fetus in cephalic presentation. heart rate 135 beats per minute. Grade II anterior placenta without previa or abruption IMPRESSION: Biophysical profile score: 8/8
--- NOTE | 2025-02-02 14:41 | DVHDS2 ---
Physician Discharge Progress N Final Diagnosis: gdm 36wks Operations or Procedures: Operations or Procedures nst,sono Condition on Discharge: Good Disposition: Home Discharge Instructions: Diet: Consistent carbohydrate Activity: No Restrictions, As Tolerated Medications: na Follow Up Care: Specialist: 3d Discharge Statement: "Patient was advised to return to the ER or call 911 if any headaches, dizziness, shortness of breath, chest pain, abdominal pain, bleeding, fevers, or worsening of medical condition. Patient was counseled about treatment plan, medications, possible side effects, patientverbalized understanding. All questions were answered to the best of my ability. This discharge took greater then 30 minutes in planning, reviewing documentati on, counseling the patient, and discussing with other team members." Visit Coding OBGYN Date of Service: Feb 01, 2025 Billing Provider: ETIENNE BARRIENTOS DO SUPERVISOR TUNNEL HEADING Common Visit Codes: 49637-[id number] INP/OBS CARE (HIGH) SUPERVISOR TUNNEL HEADING Procedure Codes: 89715-56- NON-STRESS TEST ETIENNE BARRIENTOS DO Feb 02, 2025 14:40
== END 2025-02-01 09:31 | disposition home or self-care (01) ==
LOC: LDRP 08:10
PROVIDERS: ADMIT Obstetrics & Gynecology; ATTEND Obstetrics & Gynecology
DX: O24.419 Gestational diabetes mellitus in pregnancy, unspecified control (principal); Z98.890 Other specified postprocedural states; Z79.899 Other long term (current) drug therapy; Z3A.36 36 weeks gestation of pregnancy
CPT/HCPCS: 76818; 81002; 82948; 82962; 94760; G0378; 76819

== ENCOUNTER 2025-02-04 08:25 | Observation (INO) | payer OTHER ==
[~2025-02-04] VITALS: Ht 170.2 cm; Wt 127.0 kg
--- NOTE | 2025-02-04 09:32 | DVH ---
Procedure: US BIOPHYSICAL PROFILE 02/04/2025 09:09 AM Indication: GDMA1 Comparison: US BIOPHYSICAL PROFILE on DOS: 02/01/25, US BIOPHYSICAL PROFILE on DOS: 01/28/25, US BIOPHY SICAL PROFILE on DOS: 01/25/25 Technique: Sonogram of gravid uterus utilizing grayscale and color techniques. FINDINGS: Single living intrauterine gestation. Presentation: Cephalic Placenta: Anterior heart rate: 138 bpm TYSON: 21.3 cm, DVP: 6.3 cm Maternal cervix: Not visualized Biophysical Profile: breathing score: 2 movement score: 2 tone: 2 Quantitative TYSON score: 2 Total score: 8/8 IMPRESSION: 1. Single living as above. 2. Biophysical profile score: 8/8.
--- NOTE | 2025-02-09 14:33 | DVHDS2 ---
Physician Discharge Progress N Final Diagnosis: gdm 36wks Operations or Procedures: Operations or Procedures nst,sono Condition on Discharge: Good Disposition: Home Discharge Instructions: Diet: Consistent carbohydrate Activity: No Restrictions, As Tolerated Medications: na Follow Up Care: Specialist: 3d Discharge Statement: "Patient was advised to return to the ER or call 911 if any headaches, dizziness, shortness of breath, chest pain, abdominal pain, bleeding, fevers, or worsening of medical condition. Patient was counseled about treatment plan, medications, possible side effects, patientverbalized understanding. All questions were answered to the best of my ability. This discharge took greater then 30 minutes in planning, reviewing documentati on, counseling the patient, and discussing with other team members." Visit Coding OBGYN Date of Service: Feb 04, 2025 Billing Provider: ETIENNE BARRIENTOS DO SIGNAL OPERATOR LINGUIST Common Visit Codes: 39044-[id number] OBS CARE (HIGH) SIGNAL OPERATOR LINGUIST Procedure Codes: 73015-02- NON-STRESS TEST ETIENNE BARRIENTOS DO Feb 09, 2025 14:33
== END 2025-02-04 09:53 | disposition home or self-care (01) ==
LOC: LDRP 08:25
PROVIDERS: ADMIT Obstetrics & Gynecology; ATTEND Obstetrics & Gynecology
DX: O24.419 Gestational diabetes mellitus in pregnancy, unspecified control (principal); Z3A.36 36 weeks gestation of pregnancy; Z79.899 Other long term (current) drug therapy; Z98.890 Other specified postprocedural states
CPT/HCPCS: 76818; 81002; 82948; 82962; 94760; G0378; 76819

== ENCOUNTER 2025-02-08 06:40 | Observation (INO) | payer OTHER ==
--- NOTE | 2025-02-08 12:47 | DVH ---
BIOPHYSICAL PROFILE HISTORY: GDMA2 TECHNIQUE: Multiple transabdominal real-time grayscale sonographic images through the gravid uterus of the fetus with duplex Doppler color flow and M-mode spectral analysis FINDINGS: BIOPHYSICAL PROFILE: breathing score: 2 movement score: 2 tone score: 2 Quantitative TYSON score: 2 (TYSON: 22 Cm.) Total score: 8 The cervix was not seen Single live fetus in cephalic presentation. heart rate 152 beats per minute. IMPRESSION: Biophysical profile score: 8/8
--- NOTE | 2025-02-09 12:30 | DVHDS2 ---
Physician Discharge Progress N Final Diagnosis: gdm 37wks Operations or Procedures: Operations or Procedures [id number],sono Condition on Discharge: Good Disposition: Home Discharge Instructions: Diet: Regular Activity: Light activity Medications: na Follow Up Care: Specialist: 2d Discharge Statement: "Patient was advised to return to the ER or call 911 if any headaches, dizz iness, shortness of breath, chest pain, abdominal pain, bleeding, fevers, or worsening of medical condition. Patient was counseled about treatment plan, medications, possible side effects, patientverbalized understanding. All questions were answered to the best of my ability. This discharge took greater then 30 minutes in planning, reviewing documentation, counseling the patient, and discussing with other team members." Visit Coding OBGYN Date of Service: Feb 08, 2025 Billing Provider: ETIENNE BARRIENTOS DO RESERVATION CLERK Common Visit Codes: 25075-[id number] OBS CARE (HIGH), 55691-ZHGUHSP INP/OBS CARE (HIGH) ETIENNE BARRIENTOS DO Feb 09, 2025 12:30
== END 2025-02-08 13:13 | disposition home or self-care (01) ==
LOC: LDRP 11:55
PROVIDERS: ADMIT Obstetrics & Gynecology; ATTEND Obstetrics & Gynecology
DX: O24.419 Gestational diabetes mellitus in pregnancy, unspecified control (principal); Z98.890 Other specified postprocedural states; Z79.899 Other long term (current) drug therapy; Z3A.37 37 weeks gestation of pregnancy
CPT/HCPCS: 76818; 81002; 82948; 94760; G0378; 76819

== ENCOUNTER 2025-02-11 08:45 | Observation (INO) | payer OTHER ==
--- NOTE | 2025-02-11 10:18 | DVH ---
BIOPHYSICAL PROFILE HISTORY: GDMA2 TECHNIQUE: Multiple transabdominal real-time grayscale sonographic images through the gravid uterus of the fetus with duplex Doppler color flow and M-mode spectral analysis FINDINGS: BIOPHYSICAL PROFILE: breathing score: 2 movement score: 2 tone score: 2 Quantitative TYSON score: 2 (TYSON: 23.6 Cm.) Total score: 8 Single live fetus in cephalic presentation. heart rate 142 beats per minute. IMPRESSION: Biophysical profile score: 8/8
--- NOTE | 2025-02-12 08:26 | DVHDS2 ---
Physician Discharge Progress N Final Diagnosis: gdm 37wks Operations or Procedures: Operations or Procedures nst,sono Other Interventions Other Interventions pt wants induction due to uncontrolled bs ,risk of rds d/w pt all options d/w pt .pt fully understands and wants to proceed with induction Condition on Discharge: Good Disposition: Home Discharge Instructions: Diet: Consistent carbohydrate Activity: No Restrictions, As Tolerated Medications: na Follow Up Care: Specialist: 1d Discharge Statement: "Patient was advised to return to the ER or call 911 if any headaches, dizziness, shortness of breath, chest pain, abdominal pain, bleeding, fevers, or worsening of medical condition. Patient was counseled about treatment plan, medications, possible side effects, patientverbalized understanding. All questions were answered to the best of my ability. This discharge took greater then 30 minutes in planning, reviewing documentation, counseling the patient, and discussing with other team members." Visit Coding OBGYN Date of Service: Feb 11, 2025 Billing Provider: ETIENNE BARRIENTOS DO CODE ENFORCEMENT SUPERVISOR Common Visit Codes: 86714-[id number] OBS CARE (HIGH) CODE ENFORCEMENT SUPERVISOR Procedure Codes: 17156-42- NON-STRESS TEST ETIENNE BARRIENTOS DO Feb 12, 2025 08:26
== END 2025-02-11 09:50 | disposition home or self-care (01) ==
LOC: LDRP 08:45
PROVIDERS: ADMIT Obstetrics & Gynecology; ATTEND Obstetrics & Gynecology
DX: O24.419 Gestational diabetes mellitus in pregnancy, unspecified control (principal); Z3A.37 37 weeks gestation of pregnancy; Z79.899 Other long term (current) drug therapy
CPT/HCPCS: 76818; 81002; 82948; 82962; 94760; G0378; 76819

== ENCOUNTER 2025-02-12 07:33 | Inpatient (IN) | payer OTHER ==
[~2025-02-12] VITALS: Ht 170.2 cm; Wt 121.6 kg
[2025-02-12] MEDS ORDERED: miSOPROStol 50 MCG per PRE-CUT 1/2 TAB PO PRN (19:15)
[2025-02-12] MEDS ORDERED: LACTATED RINGER'S 1,000 ML IV SCH (19:15)
[2025-02-12] MEDS ORDERED: NALBUPHINE HCL 10 MG/1ml INJECTION IV PRN (19:15)
[2025-02-12] MEDS ORDERED: LIDOCAINE 2%HCL (LOCAL ANESTH.) INJ 20ML MDV IJ PRN (19:15)
[2025-02-12] MEDS ORDERED: WITCH HAZEL-GLYCERIN PAD TOP PRN (19:15)
[2025-02-12] MEDS ORDERED: DERMOPLAST 60ML BOTTLE TOP PRN (19:15)
[2025-02-12] MEDS ORDERED: NALBUPHINE HCL 10 MG/1ml INJECTION IM PRN (19:15)
[2025-02-12] MEDS ORDERED: PHISODERM TOP SOLN 240ML BTL TOP PRN (19:15)
[2025-02-12] MEDS ORDERED: PENICILLIN G POT 5MIL/D5 50ML 50 ML IV ONE (19:30)
[2025-02-12 19:44] LABS: Basophils # (auto) 0 10 ^3/uL (0-0.2); Basophils % (auto) 0.1 % (0.0-2.0); Eosinophils # (auto) 0 10 ^3/uL (0-0.8); Eosinophils % (auto) 0.3 % (0.0-7.0); Hematocrit 35.1 % (36.0-46.0); Hemoglobin 11.7 g/dL (12.2-16.2); Lymphocytes % (auto) 21.3 % (10.0-50.0); Mean Corpuscular Hemoglobin 28.2 pg (28.0-32.0); Mean Corpuscular Hgb Conc. 33.3 g/dL (32.0-36.0); Mean Corpuscular Volume 84.5 fL (80.0-100.0); Monocytes # (auto) 0.7 10 ^3/uL (0-1.3); Monocytes % (auto) 7.5 % (0.0-12.0); Neutrophils # (auto) 6.5 10 ^3/uL (1.6-8.6); Neutrophils % (auto) 70.8 % (37.0-80.0); Nucleated Red Blood Cells % 0.1 %; Platelet Count (auto) 294 10^3/uL (140-450); Red Blood Cells 4.15 10^6/uL (4.0-5.20); Red Cell Distribution Width 16.4 % (11.8-14.3); White Blood Cell 9.2 10^3/uL (4.4-10.8)
[2025-02-12 19:59] LABS: INR 0.96 (0.9-1.15); Prothrombin Time 10.2 sec (9.3-11.8)
[2025-02-12 20:02] LABS: Alanine Aminotransferase 17 U/L (7-40); Albumin 4.4 g/dL (3.2-4.8); Anion Gap 9 (5-15); Aspartate Aminotransferase 14 U/L (13-40); BUN/Creatinine Ratio 14.1 (10.0-20.0); Bilirubin, Total 0.3 mg/dL (0.2-1.0); Calcium 9.8 mg/dL (8.7-10.4); Carbon Dioxide 23 mmol/L (20-31); Chloride 105 mmol/L (98-107); Glucose 99 mg/dL (74-106); Sodium 137 mmol/L (136-145)
[2025-02-12 20:04] LABS: Alkaline Phosphatase 153 U/L (46-116); Blood Urea Nitrogen 9 mg/dL (9-23); Potassium 3.5 mmol/L (3.5-5.1)
[2025-02-12 20:20] LABS: Urine Bacteria FEW /hpf (None Seen); Urine Blood Negative /uL (Negative); Urine Clarity Turbid (Clear); Urine Color Yellow (Yellow); Urine Mucus FEW (None Seen); Urine Protein, UAD TRACE (Negative); Urine Specific Gravity 1.032 (1.001-1.035); Urine Squamous Epithelial Cell FEW /hpf (<5); Urine Urobilinogen 3 mg/dL (Negative); Urine WBC 6 /HPF (0-5)
[2025-02-12 20:26] LABS: Amphetamine Screen, Urine Neg (NEGATIVE); Barbiturate Scree,Urine Neg (NEGATIVE); Benzodiazephine Screen, Urine Neg (NEGATIVE); Cannabinoid Screen, Urine Neg (NEGATIVE); Cocaine Screen, Urine Neg (NEGATIVE); Opiate Scree,Urine Neg (NEGATIVE); Phencyclidine Screen, Urine Neg (NEGATIVE)
[2025-02-12] MEDS ORDERED: ACCU-CHEK COMFORT CURVE STRIP VI SCH (22:00)
--- NOTE | 2025-02-12 22:13 | DVH ---
BIOPHYSICAL PROFILE HISTORY: GESTATIONAL DIABETES TECHNIQUE: Multiple transabdominal real-time grayscale sonographic images through the gravid uterus of the fetus with duplex Doppler color flow and M-mode spectral analysis FINDINGS: BIOPHYSICAL PROFILE: breathing score: 2 movement score: 2 tone score: 2 Quantitative TYSON score: 2 (TYSON: 26.24 Cm.) Total score: 8/8 The cervix not measured Single live fetus in cephalic presentation. heart rate 123 beats per minute. Anterior Grade 2 placenta without previa or abruption Single live fetus at or 05/23/2025 Biophysical profile score 8/8 corresponding to an JIMMY of 02/28/2025 Estimated weight not calculated g IMPRESSION: 1. Biophysical profile score: 8/8 HS:Y
[2025-02-12] MEDS ORDERED: PENICILLIN G POTASSIUM 2,500,000 UNITS in D5W 5% 50 ML IV SCH (23:30)
--- NOTE | 2025-02-13 07:38 | DVHDS2 ---
Physician Discharge Progress N Final Diagnosis: gdma2 37wks Operations or Procedures: Operations or Procedures nst,sono Condition on Discharge: Good Disposition: Home Discharge Instructions: Diet: Regular, Consistent carbohydrate Activity: No Restrictions, As Tolerated Medications: na Follow Up Care: Specialist: 3d Discharge Statement: "Patient was advised to return to the ER or call 911 if any headaches, dizziness, shortness of breath, chest pain, abdominal pain, bleeding, fevers, or worsening of medical condition. Patient was counseled about treatment plan, medications, possible side effects, patientverbalized understanding. All questions were answered to the best of my ability. This discharge took greater then 30 minutes in planning, reviewing documentation, counseling the patient, and discussing with other team members." Visit Coding OBGYN Date of Service: Feb 12, 2025 Billing Provider: ETIENNE BARRIENTOS DO MOVEMENT ASSEMBLER Common Visit Codes: 75417-DHAYHYN OBS CARE (HIGH) MOVEMENT ASSEMBLER Procedure Codes: 41895-10- NON-STRESS TEST ETIENNE BARRIENTOS DO Feb 13, 2025 07:38
== END 2025-02-12 22:20 | disposition home or self-care (01) | DRG 833 ==
LOC: LDRP 18:59
PROVIDERS: ADMIT Obstetrics & Gynecology; ATTEND Obstetrics & Gynecology
DX: O24.415 Gestational diabetes mellitus in pregnancy, controlled by oral hypoglycemic drugs (principal); Z3A.37 37 weeks gestation of pregnancy
CPT/HCPCS: 36415; 76819; 80053; 80307; 81001; 82948; 82962; 85025; 85610; 85730; 86780; 86803; 86850; 86870; 86900; 86901; 94760; 96360; G0378; J7060

== ENCOUNTER 2025-02-14 06:18 | Observation (INO) | payer OTHER ==
--- NOTE | 2025-02-14 09:38 | DVH ---
BIOPHYSICAL PROFILE HISTORY: gdma2 Comparison Study: None available at time of dictation. TECHNIQUE: Multiple real-time grayscale sonographic images through the gravid uterus of the fetus wit h duplex doppler color flow and M-mode spectral analysis FINDINGS: BIOPHYSICAL PROFILE: breathing score: 2 movement score: 2 tone score: 2 Quantitative TYSON score: 2 (TYSON: 26.9 cm.) Total score: 8/8 Single live fetus in cephalic presentation. heart rate 134 beats per minute. Grade anterior placenta without previa or abruption Biophysical profile score 8/8 corresponding to an JIMMY of 02/28/25 IMPRESSION: Biophysical profile score: 8/8
[2025-02-14] MEDS ORDERED: GLYB2.5T8 PO (10:12)
[2025-02-14] MEDS ORDERED: METF-370 PO (10:13)
[2025-02-14] MEDS ORDERED: PREN-96 PO (10:13)
--- NOTE | 2025-02-15 06:27 | DVHDS2 ---
Discharge Summary Date of Admission Feb 14, 2025 at 08:48 Date of Discharge: Feb 14, 2025 Labs/Diagnostic Data: Laboratory Results Test 02/14/25 09:39 POC Glucose 142 mg/dl (70-106) Brief Hx & Hospital Course: reassuring Condition at Discharge: Good Final Diagnosis/Problems List GDMA2 doing well Discharge Disposition: Home Discharge Instruct/Medications Diet: Consistent carbohydrate Activity: Light activity (kick counts labor precautions) Follow Up/Referral: as scheduled Discharge Statement: "Patient was advised to return to the ER or call 911 if any headaches, dizziness, shortness of breath, chest pain, abdominal pain, bleeding, fevers, or worsening of medical condition. Patient was counseled about treatment plan, medications, possible side effects, patientverbalized understanding. All questions were answered to the best of my ability. This discharge took greater then 30 minutes in planning, reviewing documentation, counseling the patient, and discussing with other team members." ASSESSMENT ASSESSMENT Assessment Visit Coding OBGYN Date of Service: Feb 14, 2025 Billing Provider: RU RAPHAEL DO PRIVATE EQUITY ASSOCIATE Common Visit Codes: 63971-LOJ/OBS SAME DATE (LOW), 08425-JRE/OBS SAME DATE (MOD), 73113-DOV/OBS SAME DATE (HIGH) PRIVATE EQUITY ASSOCIATE Procedure Codes: 35484-16- NON-STRESS TEST RU RAPHAEL DO Feb 15, 2025 06:27
== END 2025-02-14 10:23 | disposition home or self-care (01) ==
LOC: LDRP 08:48
PROVIDERS: ADMIT Obstetrics & Gynecology; ATTEND Obstetrics & Gynecology
DX: O24.419 Gestational diabetes mellitus in pregnancy, unspecified control (principal); Z3A.38 38 weeks gestation of pregnancy; Z79.899 Other long term (current) drug therapy
CPT/HCPCS: 76818; 81002; 82948; 82962; G0378; 76819

== ENCOUNTER 2025-02-18 06:23 | Observation (INO) | payer OTHER ==
--- NOTE | 2025-02-18 09:50 | DVH ---
BIOPHYSICAL PROFILE HISTORY: GDMA2 Comparison Study: None available at time of dictation. TECHNIQUE: Multiple real-time grayscale sonographic images through the gravid uterus of the fetus wi th duplex Doppler color flow and M-mode spectral analysis FINDINGS: BIOPHYSICAL PROFILE: breathing score: 2 movement score: 2 tone score: 2 Quantitative TYSON score: 2 (TYSON: 24.6 Cm.) Total score: 8/8 Single live fetus in cephalic presentation. heart rate 157 beats per minute. Grade anterior placenta without previa or abruption Biophysical profile score 8/8 corresponding to an JIMMY of 02/28/25 IMPRESSION: Biophysical profile score: 8/8
--- NOTE | 2025-02-20 08:15 | DVHDS2 ---
Physician Discharge Progress N Final Diagnosis: gdm 38wks Operations or Procedures: Operations or Procedures nst,sono Condition on Discharge: Good Disposition: Home Discharge Instructions: Diet: Regular Activity: No Restrictions, As Tolerated Medications: na Follow Up Care: Specialist: 4d Discharge Statement: "Patient was advised to return to the ER or call 911 if any headaches, dizziness, shortness of breath, chest pain, abdominal pain, bleeding, fevers, or worsening of medical condition. Patient was counseled about treatment plan, medications, possible side effects, patientverbalized understanding. All questions were answered to the best of my ability. This discharge took greater then 30 minutes in planning, reviewing documentation, counseling the patient, and discussing with other team members." Visit Coding OBGYN Date of Service: Feb 18, 2025 Billing Provider: ETIENNE BARRIENTOS DO DOOR TO DOOR SELLING DISTRIBUTOR Common Visit Codes: 19343-OGONPJK INP/OBS CARE (HIGH) DOOR TO DOOR SELLING DISTRIBUTOR Procedure Codes: 04001-63- NON-STRESS TEST ETIENNE BARRIENTOS DO Feb 20, 2025 08:15
== END 2025-02-18 10:20 | disposition home or self-care (01) ==
LOC: UNDOADMOB 08:52 → LDRP 08:52 → UNDODISOB 10:20
PROVIDERS: ADMIT Obstetrics & Gynecology; ATTEND Obstetrics & Gynecology
DX: O24.419 Gestational diabetes mellitus in pregnancy, unspecified control (principal); Z3A.38 38 weeks gestation of pregnancy; Z79.899 Other long term (current) drug therapy
CPT/HCPCS: 76818; 81002; 82948; 82962; 94760; G0378; 76819

== ENCOUNTER 2025-02-19 07:04 | Inpatient (IN) | payer OTHER ==
[~2025-02-19] VITALS: Ht 170.2 cm; Wt 127.5 kg
[2025-02-19] MEDS ORDERED: NALBUPHINE HCL 10 MG/1ml INJECTION IM PRN (21:45)
[2025-02-19] MEDS ORDERED: LIDOCAINE 2%HCL (LOCAL ANESTH.) INJ 20ML MDV IJ PRN (21:45)
[2025-02-19] MEDS ORDERED: NALBUPHINE HCL 10 MG/1ml INJECTION IV PRN (21:45)
[2025-02-19] MEDS ORDERED: PENICILLIN G POT 5MIL/D5 50ML 50 ML IV ONE (21:45)
[2025-02-19 22:44] LABS: Basophils # (auto) 0 10 ^3/uL (0-0.2); Basophils % (auto) 0.1 % (0.0-2.0); Eosinophils # (auto) 0 10 ^3/uL (0-0.8); Eosinophils % (auto) 0.5 % (0.0-7.0); Hematocrit 34.1 % (36.0-46.0); Hemoglobin 11.5 g/dL (12.2-16.2); Lymphocytes # (auto) 1.9 10 ^3/uL (0.4-5.4); Lymphocytes % (auto) 19.4 % (10.0-50.0); Mean Corpuscular Hgb Conc. 33.6 g/dL (32.0-36.0); Mean Corpuscular Volume 83.5 fL (80.0-100.0); Monocytes # (auto) 0.9 10 ^3/uL (0-1.3); Neutrophils # (auto) 7.1 10 ^3/uL (1.6-8.6); Nucleated Red Blood Cells % 0.1 %; Platelet Count (auto) 306 10^3/uL (140-450); Red Blood Cells 4.09 10^6/uL (4.0-5.20); Red Cell Distribution Width 16.8 % (11.8-14.3)
[2025-02-19 22:56] LABS: Urine Bacteria FEW /hpf (None Seen); Urine Blood Negative /uL (Negative); Urine Clarity Turbid (Clear); Urine Color Yellow (Yellow); Urine Mucus FEW (None Seen); Urine Protein, UAD TRACE (Negative); Urine Specific Gravity 1.028 (1.001-1.035); Urine Squamous Epithelial Cell FEW /hpf (<5); Urine Urobilinogen Normal (Negative); Urine WBC 4 /HPF (0-5)
--- NOTE | 2025-02-19 22:57 | DVH ---
OB ULTRASOUND obstetrical ultrasound limited HISTORY: PRESENTING PART TECHNIQUE: Obstetrical ultrasound limited Multiple real-time grayscale sonographic images of the pelv is with duplex Doppler color flow, spectral and M-mode analysis. TRANSDUCERS: Transabdominal FINDINGS: The cervix measures IUP single live fetus at weeks 5 days. heart rate detected at 155 beats per minute. TYSON 25.6 cm Placenta anterior with no findings of previa or abruption. Placental grade is 3. presentation cephalic IMPRESSION: 1. presentation cephalic 2. Placenta anterior no findings of previa or abruption 3. TYSON 25.6 cm; TYSON from 02/18/2025 24.6 cm; 02/14/2025 ; 26.9 cm 4. FHR: 155 beats per minute
[2025-02-19 22:59] LABS: INR 0.97 (0.9-1.15); Partial Thromboplastin Time 26.8 SEC (24.5-34.5); Prothrombin Time 10.3 sec (9.3-11.8)
[2025-02-19 23:00] LABS: Alanine Aminotransferase 12 U/L (7-40); Anion Gap 10 (5-15); BUN/Creatinine Ratio 19.6 (10.0-20.0); Blood Urea Nitrogen 9 mg/dL (9-23); Calcium 9.6 mg/dL (8.7-10.4); Carbon Dioxide 22 mmol/L (20-31); Chloride 105 mmol/L (98-107); Glucose 86 mg/dL (74-106); Potassium 3.9 mmol/L (3.5-5.1); Sodium 137 mmol/L (136-145); Total Protein 6.6 g/dL (5.7-8.2)
[2025-02-19 23:04] LABS: Opiate Scree,Urine Neg (NEGATIVE)
[2025-02-19 23:05] LABS: Alkaline Phosphatase 151 U/L (46-116); Aspartate Aminotransferase 12 U/L (13-40); Bilirubin, Total 0.3 mg/dL (0.2-1.0)
[2025-02-19 23:05] LABS: Amphetamine Screen, Urine Neg (NEGATIVE); Barbiturate Scree,Urine Neg (NEGATIVE); Benzodiazephine Screen, Urine Neg (NEGATIVE); Cannabinoid Screen, Urine Neg (NEGATIVE); Cocaine Screen, Urine Neg (NEGATIVE); Phencyclidine Screen, Urine Neg (NEGATIVE)
[2025-02-20] VITALS (12 sets, daily range): BP systolic 104–119; BP diastolic 52–66; PULSE 66–86; RESP 12–18; TEMP 97.4–98.8; O2SAT 95–100
[2025-02-20] MEDS: DERMOPLAST 60ML BOTTLE TOP PRN (00:45)
[2025-02-20] MEDS: WITCH HAZEL-GLYCERIN PAD TOP PRN (00:45)
[2025-02-20] MEDS: miSOPROStol 50 MCG per PRE-CUT 1/2 TAB PO PRN (00:45)
[2025-02-20] MEDS: PHISODERM TOP SOLN 240ML BTL TOP PRN (00:45)
[2025-02-20] MEDS: MAALOX PLUS or MAALOX 30 ML PO ONE (01:44)
[2025-02-20] MEDS ORDERED: PENICILLIN G POTASSIUM 2,500,000 UNITS in D5W 5% 50 ML IV SCH (01:45)
[2025-02-20] MEDS: LACTATED RINGER'S 1,000 ML IV SCH (01:46)
--- NOTE | 2025-02-20 04:13 | DVHHP ---
ADMIT DATE: 02/19/2025 CHIEF COMPLAINT: Here for induction of labor secondary to GDMA2. HISTORY OF PRESENT ILLNESS: The patient is a 24-year-old 3, para 1 with EDC 02/28/2025, estimated gestational age of 39 weeks, admitted for induction of labor. The patient has GDMA2. The patient denies having any rupture of membrane or bleeding. Estimated weight of the baby is 93. The patient was given the option of having primary due to GDMA2 and macrosomia, possibility of shoulder dystocia, short term and long-term morbidity, mortality for both baby and her. Discussed with patient possibility of palsy. Other complications, bleeding, infection discussed with patient. The patient fully understands. All questions answered. The patient wishes to proceed with a trial of vaginal delivery. PAST MEDICAL HISTORY: GDMA2. PAST SURGICAL HISTORY: None. SOCIAL HISTORY: None. FAMILY HISTORY: None. OBSTETRIC AND GYNECOLOGIC HISTORY: One vaginal delivery, 1 spontaneous AB. GBS positive. ALLERGIES: No known drug allergies. REVIEW OF SYSTEMS: Consistent with HPI. PHYSICAL EXAMINATION: VITAL SIGNS: Stable, afebrile. HEENT: Within normal limits. CARDIOVASCULAR: Regular rate and rhythm. LUNGS: Clear to auscultation. BREASTS: Symmetrical. No masses. ABDOMEN: Gravid, positive heart. Estimated weight 93. EXTREMITIES: No clubbing, cyanosis or edema. PELVIC: Cervix 1 cm ____, -3. IMPRESSION: * Intrauterine at 39 weeks with GDMA2. * Macrosomia. * Morbid obesity. PLAN: The patient wishes to have induction of labor, trial of vaginal delivery. She was advised to undergo primary , but patient refused. The patient fully understands possibility of shoulder dystocia, palsy, other complications with shoulder dystocia. Possibility of injury or demise discussed with patient. All questions answered. The patient wishes to proceed with planned procedure. DO GAVIN Dave/HEM/TERESA TID: [id number] RECEIPT: [id number]
--- NOTE | 2025-02-20 07:53 | DVHPN2 ---
Chief Complaints Patient reports: No new complaints Nursing reports: No new complaints Objective Medications Current Medications Medications (Trade) Dose Ordered Sig/Christa Route PRN Reason Start Time Stop Time Status Last Admin Benzocaine (Dermoplast) 1 applic PRN PRN TOP PERINEAL AREA DISCOMFORT 02/19/25 21:45 02/20/25 00:45 Lactated Ringer's 1,000 ml @ 125 mls/hr Q8H IV 02/19/25 21:45 02/20/25 01:47 Lidocaine HCl (Xylocaine) 40 ml ONCE PRN IJ PERINEAL AREA DISCOMFORT 02/19/25 21:45 Misoprostol (Cytotec) 50 mcg Q4HPRN PRN PO CERVICAL RIPENING 02/19/25 22:30 02/20/25 05:10 Nalbuphine HCl (Nubain) 10 mg Q4HP PRN IM MODERATE PAIN (4-6 PAIN SCALE) 02/19/25 21:45 Nalbuphine HCl (Nubain) 10 mg Q4HP PRN IV MODERATE PAIN (4-6 PAIN SCALE) 02/19/25 21:45 Penicillin G Potassium [id number] units/Dextrose 50 ml @ 100 mls/hr Q4H IV 02/20/25 01:45 Sodium Lauryl Sulfate (Phisoderm) 240 ml PRN PRN TOP PERINEAL AREA DISCOMFORT 02/19/25 21:45 02/20/25 00:45 Witch Ankita (Tucks) 1 pad PRN PRN TOP PERINEAL AREA DISCOMFORT 02/19/25 21:45 02/20/25 00:45 Others ve-2cm/50/-2 Studies Laboratory Tests 02/19/25 22:17 Test 02/19/25 22:17 Range/Units Serum Glucose 86 74-106 mg/dL Ass/Plan Assessment iol for gdm Plan moreno inserted rec cytotec Visit Coding OBGYN Date of Service: Feb 20, 2025 Billing Provider: ETIENNE BARRIENTOS DO PORTFOLIO MGR Common Visit Codes: 49624-JAAMFTM INP/OBS CARE (HIGH) PORTFOLIO MGR Procedure Codes: 99669-74- NON-STRESS TEST ETIENNE BARRIENTOS DO Feb 20, 2025 07:53
[2025-02-20] MEDS ORDERED: IBUP-1456 PO (08:58)
[2025-02-20] MEDS ORDERED: DOCU-94 PO (08:58)
[2025-02-20] MEDS ORDERED: HYDR-4072 PO (08:58)
[2025-02-20] MEDS ORDERED: CEPH500T PO (08:58)
[2025-02-20] MEDS: ceFAZolin 2 GM/D5W50ml 50 ML IV ONE (09:04)
--- NOTE | 2025-02-20 09:22 | DVHHP ---
ADMIT DATE: 02/19/2025 CHIEF COMPLAINT: Nonreassuring heart tracing, repetitive decels. HISTORY OF PRESENT ILLNESS: The patient is a 24-year-old 2 para 1 with EDC 02/28/2025, estimated gestational age of 39 weeks, admitted for induction of labor secondary to GDMA2. The weight was 9 pounds 3 ounces. The patient was given option of primary due to GDMA2 and macrosomia but the patient refused and wanted trial of labor. She received two Cytotec. Islas balloon was inserted into the cervix. Shortly after that, the patient was having repetitive decels. Subsequently, the patient is taken for primary low transverse section. The patient agrees. Islas catheter was removed from the cervix. We will proceed with primary low transverse section secondary to nonreassuring heart tracing, fetus at risk. PAST MEDICAL HISTORY: GDMA2. PAST SURGICAL HISTORY: None SOCIAL HISTORY: None FAMILY HISTORY: None OBSTETRIC AND GYNECOLOGIC HISTORY: One spontaneous AB. One vaginal delivery. REVIEW OF SYSTEMS: Consistent with HPI. ALLERGIES: No known drug allergies. PHYSICAL EXAMINATION: VITAL SIGNS: Stable. Afebrile. HEENT: Within normal limits. CARDIOVASCULAR: Regular rate and rhythm. LUNGS: Clear to auscultation. BREASTS: No masses. ABDOMEN: Obese. PELVIC: 1.5 cm, 50%, -2. EXTREMITIES: No clubbing, cyanosis, or edema. IMPRESSION: * Intrauterine at 39 weeks, induction of labor for gestational diabetes mellitus. * Nonreassuring heart tracing, fetus at risk. * Morbid obesity. PLAN: Primary low transverse section. Informed consent obtained. Risks and complications of surgery including infection, bleeding, hematoma formation, injury to bowel, bladder, surrounding organs, possibility of DVT, pulmonary embolism, risk of anesthesia discussed with the patient. Options reviewed. All questions answered. Possibility of infection and bleeding discussed with the patient. The patient wishes to proceed with planned procedure. DO IDANIA Dave TID: [id number] RECEIPT: [id number]
[2025-02-20] MEDS ORDERED: ONDANSETRON HCL 4 MG/2 ML VIAL ONE (10:30)
[2025-02-20] MEDS ORDERED: DexAMETHasone SOD PHOS 10MG/1ML VIAL INJ ONE (10:30)
[2025-02-20] MEDS ORDERED: oxyTOCIN 10 UNIT/ML 10ML VIAL ONE (10:30)
[2025-02-20] MEDS ORDERED: MORPHINE SULF PF 5 MG/10 ML VIAL ONE (10:31)
[2025-02-20] MEDS ORDERED: fentaNYL CITRATE 100 MCG/2 ML VL ONE (10:31)
[2025-02-20] MEDS ORDERED: SODIUM CHLORIDE LOCK 10 ML ONE ×2 (10:46→10:55)
[2025-02-20] MEDS ORDERED: ceFAZolin 1GM VL ONE (10:46)
[2025-02-20] MEDS ORDERED: PHENYLEPHRINE HCL 10 MG/ML VL ONE (10:56)
[2025-02-20] MEDS ORDERED: ONDANSETRON HCL 4 MG/2 ML VIAL IV PRN (11:00)
[2025-02-20] MEDS ORDERED: LACT. RINGERS/OXYTOCIN 20UNITS 1,000 ML IV ONE (11:00)
[2025-02-20] MEDS ORDERED: ceFAZolin 1GM/50ML 50 ML IV SCH ×3 (11:00→15:00)
--- NOTE | 2025-02-20 11:32 | DVHOP2 ---
Operative Report DATE OF OPERATION: 02/20/25 PREOPERATIVE DIAGNOSES: Term 39wks iolfor gdma2,morbid obesity,polyhydramnia.nonreassuring fht fetus at risk,macrosomia POSTOPERATIVE DIAGNOSES: same,nuchal cord and arm cord SURGEON: Mehnaz Perez D.O./gurmeet ANESTHESIOLOGIST: javier TYPE OF ANESTHESIA : spinal CONSENT: The patient was informed of the risks and benefits of the procedure. The patient was informed of the risks and benefits of the procedure. These in clude but are not limited to , complications of anesthesia, postoperative infection, incomplete relief of symptoms, recurrence of symptoms, damage to blood vessels, nerves and tendons, deep venous thrombosis, pulmonary embolism and possible need for repeat surgery in the future. FINDINGS: Baby [b with Apgars of [7] and [9]. Grossly normal appearing tubes and ovaries.nuchal cord,poly PROCEDURES: Primary low transverse section. PROCEDURE IN DETAIL: The patient was taken to the operating room. She already had an epidural in place. She was then placed in supine position with a leftward tilt. A Pfannenstiel skin incision was made 2 cm above the symphysis pubis. This incision was carried to the underlying layer of fascia. The fascia was nicked in the midline. The incision was extended laterally. The superior aspect of the fascial incision was grasped and elevated. The same procedure was done to the inferior aspect of the fascial incision. The rectus muscles were then in the midline. Peritoneum was identified and entered. Peritoneal incision was extended superiorly and inferiorly with good visualization of the bladder. Bladder blade was inserted. Vesicouterine peritoneum was identified and entered. Lower uterine segment was incised in a transverse fashion. The was delivered from vertex presentation. Infant was baby [b] with Apgars [7] and [9]. Placenta was then removed manually. Uterus was exteriorized and cleared of all clots and debris. The incision was repaired using 0 Vicryl in a double-layered fashion. No bleeding was noted. Uterus was then returned to the abdomen. The gutters were cleared off all clots and debris. Peritoneum was closed using 0 Vicryl, fascia was closed using 0 Maxon, and skin was closed using faviola. The patient tolerated the procedure well. She was taken to the recovery room in stable condition. ESTIMATED BLOOD LOSS: Estimated blood loss was noted to be 500 mL. Visit Coding OBGYN Date of Service: Feb 20, 2025 Billing Provider: MEHNAZ PEREZ DO [employer] Common Visit Codes: [id number] INP/OBS CARE(HIGH) QUALITY HEAD Procedure Codes: [id number] DELIVERY ONLY MEHNAZ PEREZ DO Feb 20, 2025 11:32
--- NOTE | 2025-02-20 11:35 | POSTOP ---
Post-Operative Note Post-Operative Note Preop Diagnosis iol for gdm,morbid obesity,poly,nonressuring fht Postop Diagnosis: same,nuchal cord Operation performed pltcs Specimen baby boy,apgars 7-9,poly,nuchal cord Anesthesia: Regional Anesthesiologist: javier Blood Loss(fluid mgmt) 500ml Surgeon Etienne Perez Wood Scrap Handler gurmeet Implant na Complications & Mgmt none Date 02/20/25 Time 11:32 Visit Coding OBGYN Date of Service: Feb 20, 2025 Billing Provider: ETIENNE PEREZ DO UNDER BASTER Common Visit Codes: [id number] INP/OBS CARE(HIGH) UNDER BASTER Procedure Codes: [id number] DELIVERY ONLY ETIENNE PEREZ DO Feb 20, 2025 11:35
[2025-02-20] MEDS ORDERED: diphenhdrAMINE HCL 50 MG/1 ML VL IV PRN (12:15)
[2025-02-20] MEDS ORDERED: HYDROmorphone HCL 2 MG/ML VL/or syr IV PRN (12:15)
[2025-02-20] MEDS ORDERED: NALOXONE HCL 0.4 MG/ML VIAL IV PRN (12:15)
[2025-02-20] MEDS: METOCLOPRAMIDE HCL 5MG/ml INJ 2ml VIAL IV SCH (12:36)
[2025-02-20] MEDS: NALBUPHINE HCL 10 MG/1ml INJECTION IV ONE (15:31)
[2025-02-20] MEDS: ONDANSETRON HCL 4 MG/2 ML VIAL IV PRN (15:57)
[2025-02-20] MEDS: ACETAMINOPHEN IV 1000 MG/100ML (10MG/ML) IV PRN (15:57)
[2025-02-20] MEDS: ceFAZolin 1GM/50ML 50 ML IV SCH (19:07)
[2025-02-20 21:40] LABS: Basophils # (auto) 0 10 ^3/uL (0-0.2); Basophils % (auto) 0.1 % (0.0-2.0); Eosinophils # (auto) 0 10 ^3/uL (0-0.8); Hematocrit 32.5 % (36.0-46.0); Hemoglobin 10.8 g/dL (12.2-16.2); Lymphocytes % (auto) 5.5 % (10.0-50.0); Mean Corpuscular Hemoglobin 27.7 pg (28.0-32.0); Mean Corpuscular Hgb Conc. 33.3 g/dL (32.0-36.0); Mean Corpuscular Volume 83.4 fL (80.0-100.0); Monocytes % (auto) 5.4 % (0.0-12.0); Neutrophils # (auto) 16.8 10 ^3/uL (1.6-8.6); Platelet Count (auto) 288 10^3/uL (140-450); Red Cell Distribution Width 16.6 % (11.8-14.3); White Blood Cell 18.9 10^3/uL (4.4-10.8)
[2025-02-20] MEDS ORDERED: METOCLOPRAMIDE HCL 5MG/ml INJ 2ml VIAL IV PRN (23:00)
[2025-02-21] VITALS (13 sets, daily range): BP systolic 110–134; BP diastolic 52–79; PULSE 62–100; RESP 15–18; TEMP 97.8–99; O2SAT 95–100
[2025-02-21 07:11] LABS: Basophils # (auto) 0 10 ^3/uL (0-0.2); Basophils % (auto) 0.1 % (0.0-2.0); Eosinophils # (auto) 0 10 ^3/uL (0-0.8); Eosinophils % (auto) 0.3 % (0.0-7.0); Hematocrit 29.7 % (36.0-46.0); Hemoglobin 9.9 g/dL (12.2-16.2); Lymphocytes # (auto) 1.6 10 ^3/uL (0.4-5.4); Lymphocytes % (auto) 10.8 % (10.0-50.0); Mean Corpuscular Hgb Conc. 33.3 g/dL (32.0-36.0); Monocytes # (auto) 1.5 10 ^3/uL (0-1.3); Monocytes % (auto) 10.3 % (0.0-12.0); Neutrophils # (auto) 11.7 10 ^3/uL (1.6-8.6); Neutrophils % (auto) 78.5 % (37.0-80.0); Platelet Count (auto) 272 10^3/uL (140-450); Red Blood Cells 3.53 10^6/uL (4.0-5.20); Red Cell Distribution Width 16.5 % (11.8-14.3); White Blood Cell 14.9 10^3/uL (4.4-10.8)
--- NOTE | 2025-02-21 07:32 | DVHPN2 ---
Progress Note Date Seen: Feb 21, 2025 Subjective S: Lochia moderate. Clear liquid diet well tolerated. Ambulated after Islas catheter was removed, due to void. Pain relieved with IV analgesics. Passing flatus but no BM yet. w/o problem vital signs Vital Sign Date Time Temp Pulse Resp B/P (MAP) Pulse Ox O2 Delivery O2 Flow Rate FiO2 02/21/25 06:58 Room Air 02/21/25 05:00 75 16 126/67 (86) 95 02/21/25 03:00 99.0 99.0 Total Intake and Output 02/20/25 02/20/25 02/21/25 15:00 23:00 07:00 Output Total 600 ml 1150 ml 300 ml Balance -600 ml -1150 ml -300 ml medications Current Medications Medications Dose Ordered Sig/Christa Route Start Time Stop Time Status Last Admin Dose Admin Lactated Ringer's 1,000 ml @ 125 mls/hr Q8H IV 02/19/25 21:45 02/20/25 19:07 125 MLS/HR Aniya Luciano 1 pad PRN PRN TOP 02/19/25 21:45 02/20/25 00:45 1 PAD Sodium Lauryl Sulfate 240 ml PRN PRN TOP 02/19/25 21:45 02/20/25 00:45 240 ML Benzocaine 1 applic PRN PRN TOP 02/19/25 21:45 02/20/25 00:45 1 APPLIC Lidocaine HCl 40 ml ONCE PRN IJ 02/19/25 21:45 Diphenhydramine HCl 25 mg Q4HP PRN IV 02/20/25 12:15 Ondansetron HCl 4 mg Q4HP PRN IV 02/20/25 12:15 02/20/25 15:57 4 MG Cefazolin Sodium 50 ml @ 100 mls/hr Q8H IV 02/20/25 19:00 02/21/25 02:40 100 MLS/HR Acetaminophen 1,000 mg Q8HPRN PRN IV 02/20/25 15:45 02/21/25 15:44 02/20/25 23:47 1,000 MG Metoclopramide HCl 10 mg Q8HR PRN IV 02/20/25 23:00 Docusate Sodium 100 mg Q12HR PO 02/21/25 10:00 UNV Dimethicone 80 mg QID PO 02/21/25 12:00 UNV Ibuprofen 800 mg Q8HP PRN PO 02/21/25 07:15 UNV Acetaminophen/ Hydrocodone Bitart 1 tab Q4HPRN PRN PO 02/21/25 07:15 UNV Acetaminophen/ Hydrocodone Bitart 2 tab Q4HPRN PRN PO 02/21/25 07:15 UNV laboratory and microbiology Laboratory Tests 02/19/25 22:17 Test 02/19/25 22:17 Range/Units Serum Glucose 86 74-106 mg/dL Objective O: A&O x3 NAD. Afebrile, VSS Chest: heart and lung sounds normal. Breasts: Nipples intact w/o cracks or soreness Abdomen: normal BS, soft, non-tender, no rebound or guarding, fundus firm @ U Lower abdominal Incision site with steri-strips on, open to fresh air same clean, dry and intact. No edema, erythema or induration Extremities: no edema or tenderness Lochia - moderate rubra Assessment/Plan 24yo now Post operative & ppd #1 s/p Primary Section doing well. Blood Type: O Rh: Negative; Rhogam given Breast feeding and Formula feeding Rubella Immune Pain control with analgesics Diet: Advance as tolerated Encourage ambulation Bowel regimen: Increase fluid intake and fiber in diet, Laxative PRN PP BCM Plan: undecided Supportive care Plan discussed with: Patient, Spouse Visit Coding OBGYN Date of Service: Feb 21, 2025 Billing Provider: JONELLE TENA CNM RETRIEVAL SPECIALIST Common Visit Codes: [id number] INP/OBS CARE(HIGH) JONELLE TENA CNM Feb 21, 2025 07:32
[2025-02-21] MEDS: HYDROcodone-ACET 5/325MG TAB PO PRN (09:35)
[2025-02-21] MEDS: DOCUSATE SOD 100 MG CAP PO SCH (10:14)
[2025-02-21] MEDS: SIMETHICONE 80 MG CHEWABLE TABLET PO SCH (13:32)
[2025-02-21] MEDS: RHO (D) IMMUNE GLOBULIN 300 MCG INJ IM ONE (13:37)
--- NOTE | 2025-02-22 00:39 | DVHPN2 ---
Progress Note Date Seen: Feb 22, 2025 Subjective S: Lochia minimal. Regular diet well tolerated. Ambulating and voiding well w/o feeling dizzy or lightheaded. Pain relieved with analgesics. Passing flatus but no BM yet. w/o problem vital signs Vital Sign Date Time Temp Pulse Resp B/P (MAP) Pulse Ox O2 Delivery O2 Flow Rate FiO2 02/21/25 22:30 98.9 91 18 123/73 (90) 96 98.9 02/21/25 19:15 Room Air Total Intake and Output 02/21/25 02/21/25 02/22/25 15:00 23:00 07:00 Output Total 700 ml 1100 ml Balance -700 ml -1100 ml medications Current Medications Medications Dose Ordered Sig/Christa Route Start Time Stop Time Status Last Admin Dose Admin Lactated Ringer's 1,000 ml @ 125 mls/hr Q8H IV 02/19/25 21:45 02/20/25 19:07 125 MLS/HR Aniya Luciano 1 pad PRN PRN TOP 02/19/25 21:45 02/20/25 00:45 1 PAD Sodium Lauryl Sulfate 240 ml PRN PRN TOP 02/19/25 21:45 02/20/25 00:45 240 ML Benzocaine 1 applic PRN PRN TOP 02/19/25 21:45 02/20/25 00:45 1 APPLIC Lidocaine HCl 40 ml ONCE PRN IJ 02/19/25 21:45 Diphenhydramine HCl 25 mg Q4HP PRN IV 02/20/25 12:15 Ondansetron HCl 4 mg Q4HP PRN IV 02/20/25 12:15 02/20/25 15:57 4 MG Cefazolin Sodium 50 ml @ 100 mls/hr Q8H IV 02/20/25 19:00 02/21/25 19:51 100 MLS/HR Metoclopramide HCl 10 mg Q8HR PRN IV 02/20/25 23:00 Docusate Sodium 100 mg Q12HR PO 02/21/25 10:00 02/21/25 22:08 100 MG Dimethicone 80 mg QID PO 02/21/25 12:00 02/21/25 22:08 80 MG Ibuprofen 800 mg Q8HP PRN PO 02/21/25 07:15 Acetaminophen/ Hydrocodone Bitart 1 tab Q4HPRN PRN PO 02/21/25 07:15 Acetaminophen/ Hydrocodone Bitart 2 tab Q4HPRN PRN PO 02/21/25 07:15 02/21/25 22:08 2 TAB laboratory and microbiology Laboratory Tests 02/21/25 06:19 02/19/25 22:17 Test 02/19/25 22:17 Range/Units Serum Glucose 86 74-106 mg/dL Objective O: A&O x3 NAD. Afebrile, VSS Chest: heart and lung sounds normal. Breasts: Nipples intact w/o cracks or soreness Abdomen: normal BS, soft, non-tender, no rebound or guarding, fundus firm @ U- 1, Lower abdominal Incision site with steri-strips on, open to fresh air same clean, dry and intact. No edema, erythema or induration Extremities: no edema or tenderness Lochia - minimal Assessment/Plan A/P: 24yo now Post operative & ppd #2 s/p Primary Section doing well. Blood Type: O Rh: Negative; Rhogam given Breast feeding Rubella Immune Pain control with oral medications Bowel regimen: Increase fluid intake and fiber in diet, Laxative PRN PP BCM Plan: undecided Discharge plan: May discharge home tomorrow if condition remains stable Plan discussed with: Patient, Spouse Visit Coding OBGYN Date of Service: Feb 22, 2025 Billing Provider: JONELLE TENA CNM T[employer]UT FARMING SUPERVISOR Common Visit Codes: [id number] INP/OBS CARE(HIGH) JONELLE TENA CNM Feb 22, 2025 00:39
[2025-02-22] MEDS: IBUPROFEN 800 MG TAB PO PRN (01:23)
[2025-02-22 03:30] VITALS: BP 109/64; PULSE 82; RESP 18; TEMP 98.4; O2SAT 96
[2025-02-22 07:17] VITALS: BP 126/73; PULSE 102; RESP 16; TEMP 98.2; O2SAT 96
[2025-02-22 18:45] VITALS: BP 126/76; PULSE 82; RESP 18; TEMP 98.8; O2SAT 97
[2025-02-22] MEDS: FERROUS SULFATE 325mg EC TAB PO ONE (21:16)
[2025-02-22] MEDS: HYDROcodone-ACET 5/325MG TAB PO PRN (22:22)
[2025-02-22 23:00] VITALS: BP 139/82; PULSE 90; RESP 18; TEMP 98.1; O2SAT 97
[2025-02-23 02:00] VITALS: BP 134/75; PULSE 80; RESP 18; TEMP 98.8; O2SAT 97
--- NOTE | 2025-02-23 02:39 | DVHPN2 ---
Progress Note Date Seen: Feb 19, 2025 Subjective S: Lochia minimal. Regular diet well tolerated. Ambulating and voiding well w/o feeling dizzy or lightheaded. Pain relieved with oral analgesics. Passing flatus but no BM yet. and formula feeding infant w/o problem. Undecided re: contraception Desires and Requests to be discharged today vital signs Vital Sign Date Time Temp Pulse Resp B/P (MAP) Pulse Ox O2 Delivery O2 Flow Rate FiO2 02/22/25 23:00 98.1 90 18 139/82 (101) 97 98.1 02/22/25 18:45 Room Air medications Current Medications Medications Dose Ordered Sig/Christa Route Start Time Stop Time Status Last Admin Dose Admin Lactated Ringer's 1,000 ml @ 125 mls/hr Q8H IV 02/19/25 21:45 02/20/25 19:07 125 MLS/HR Witch Ankita 1 pad PRN PRN TOP 02/19/25 21:45 02/20/25 00:45 1 PAD Sodium Lauryl Sulfate 240 ml PRN PRN TOP 02/19/25 21:45 02/20/25 00:45 240 ML Benzocaine 1 applic PRN PRN TOP 02/19/25 21:45 02/20/25 00:45 1 APPLIC Lidocaine HCl 40 ml ONCE PRN IJ 02/19/25 21:45 Diphenhydramine HCl 25 mg Q4HP PRN IV 02/20/25 12:15 Ondansetron HCl 4 mg Q4HP PRN IV 02/20/25 12:15 02/20/25 15:57 4 MG Cefazolin Sodium 50 ml @ 100 mls/hr Q8H IV 02/20/25 19:00 02/22/25 03:30 100 MLS/HR Metoclopramide HCl 10 mg Q8HR PRN IV 02/20/25 23:00 Docusate Sodium 100 mg Q12HR PO 02/21/25 10:00 02/22/25 22:22 100 MG Dimethicone 80 mg QID PO 02/21/25 12:00 02/22/25 22:22 80 MG Ibuprofen 800 mg Q8HP PRN PO 02/21/25 07:15 02/23/25 01:56 800 MG Acetaminophen/ Hydrocodone Bitart 1 tab Q4HPRN PRN PO 02/21/25 07:15 02/22/25 22:22 1 TAB Acetaminophen/ Hydrocodone Bitart 2 tab Q4HPRN PRN PO 02/21/25 07:15 02/22/25 11:00 2 TAB laboratory and microbiology Laboratory Tests 02/21/25 06:19 02/19/25 22:17 Test 02/19/25 22:17 Range/Units Serum Glucose 86 74-106 mg/dL Objective O: A&O x3 NAD. Afebrile, VSS Chest: heart and lung sounds normal. Breasts: Nipples intact w/o cracks or soreness Abdomen: normal BS, soft, non-tender, no rebound or guarding, fundus firm @ U- 1, Lower abdominal Incision site with steri-strips on, open to fresh air same clean, dry and intact. No edema, erythema or induration Extremities: no edema or tenderness Lochia - minimal Assessment/Plan A/P: 24 yo now Post operative & ppd #3 s/p Primary Section doing well. Anemia. h/o GDMA2 Obesity Class III Blood Type: O Rh: Negative, had Rhogam Breast feeding and Formula feeding Rubella Immune Pain control with oral medications Bowel regimen: Increase fluid intake and fiber in diet, Laxative PRN PP BCM Plan: Undecided Discharge plan: May discharge home later today if condition remains stable Plan discussed with: Patient, Spouse Visit Coding OBGYN Date of Service: Feb 23, 2025 Billing Provider: JONELLE TENA CNM PAN OPERATOR Common Visit Codes: [id number] INP/OBS CARE(HIGH) JONELLE TENA CNM Feb 23, 2025 02:39
--- NOTE | 2025-02-23 03:09 | DVHDS2 ---
Discharge Summary Date of Admission Feb 19, 2025 at 20:52 Date of Discharge: Feb 23, 2025 Admitting Diagnosis IUP at 38w 4d GDMA2, Macrosomia Morbid Obesity IOL GBS Carrier Wounds: Lower abdominal C- section incision with Steri-strip on, same C, D & I.with no sign of infection Labs/Diagnostic Data: Laboratory Results Test 02/21/25 06:19 02/20/25 06:20 02/19/25 22:17 02/19/25 20:59 White Blood Count 14.9 10^3/uL (4.4-10.8) Red Blood Count 3.53 10^6/uL (4.0-5.20) Hemoglobin 9.9 g/dL (12.2-16.2) Hematocrit 29.7 % (36.0-46.0) Mean Corpuscular Volume 84.0 fL (80.0-100.0) Mean Corpuscular Hemoglobin 28.0 pg (28.0-32.0) Mean Corpuscular Hemoglobin Concent 33.3 g/dL (32.0-36.0) Red Cell Distribution Width 16.5 % (11.8-14.3) Platelet Count 272 10^3/uL (140-450) Mean Platelet Volume 7.2 fL (6.9-10.8) Neutrophils (%) (Auto) 78.5 % (37.0-80.0) Lymphocytes (%) (Auto) 10.8 % (10.0-50.0) Monocytes (%) (Auto) 10.3 % (0.0-12.0) Eosinophils (%) (Auto) 0.3 % (0.0-7.0) Basophils (%) (Auto) 0.1 % (0.0-2.0) Neutrophils # (Auto) 11.7 10 ^3/uL (1.6-8.6) Lymphocytes # (Auto) 1.6 10 ^3/uL (0.4-5.4) Monocytes # (Auto) 1.5 10 ^3/uL (0-1.3) Eosinophils # (Auto) 0 10 ^3/uL (0-0.8) Basophils # (Auto) 0 10 ^3/uL (0-0.2) Nucleated Red Blood Cells 0.0 % POC Glucose 100 mg/dl (70-106) Prothrombin Time 10.3 sec (9.3-11.8) Prothrombin Time INR 0.97 (0.9-1.15) Activated Partial Thromboplast Time 26.8 SEC (24.5-34.5) Sodium Level 137 mmol/L (136-145) Potassium Level 3.9 mmol/L (3.5-5.1) Chloride Level 105 mmol/L (98-107) Carbon Dioxide Level 22 mmol/L (20-31) Anion Gap 10 (5-15) Blood Urea Nitrogen 9 mg/dL (9-23) Creatinine 0.46 mg/dL (0.550-1.02) Glomerular Filtration Rate Calc 135 mL/min (>90) BUN/Creatinine Ratio 19.6 (10.0-20.0) Serum Glucose 86 mg/dL (74-106) Calcium Level 9.6 mg/dL (8.7-10.4) Total Bilirubin 0.3 mg/dL (0.2-1.0) Aspartate Amino Transferase (AST) 12 U/L (13-40) Alanine Aminotransferase (ALT) 12 U/L (7-40) Alkaline Phosphatase 151 U/L (46-116) Total Protein 6.6 g/dL (5.7-8.2) Albumin 4.0 g/dL (3.2-4.8) Treponema pallidum Antibody Non-reactive (Negative) Urine Color Yellow (Yellow) Urine Clarity Turbid (Clear) Urine pH 6.0 (5.0-9.0) Urine Specific Terry 1.028 (1.001-1.035) Urine Protein Trace (Negative) Urine Ketones Negative (Negative) Urine Blood Negative /uL (Negative) Urine Nitrite Negative (Negative) Urine Bilirubin Negative (Negative) Urine Urobilinogen Normal mg/dL (Negative) Urine Leukocyte Esterase Negative /uL (Negative) Urine RBC None seen /hpf (0 - 4) Urine Microscopic WBC 4 /HPF (0-5) Urine Squamous Epithelial Cells Few /hpf (<5) Urine Calcium Oxalate Crystals Mod (None Seen) Urine Bacteria Few /hpf (None Seen) Urine Mucus Few (None Seen) Urine Glucose Normal mg/dL (Normal) Urine Opiates Screen Neg (NEGATIVE) Urine Fentanyl Screen Neg (NEGATIVE) Urine Barbiturates Screen Neg (NEGATIVE) Urine Phencyclidine Screen Neg (NEGATIVE) Urine Amphetamines Screen Neg (NEGATIVE) Urine Benzodiazepines Screen Neg (NEGATIVE) Urine Cocaine Screen Neg (NEGATIVE) Urine Cannabinoids Screen Neg (NEGATIVE) Other Laboratory Tests 02/21/25 06:19 02/19/25 22:17 Brief Hx & Hospital Course: Ms Mcnally was admitted for IOL on 02/19/25 d/t GDMA2, Macrosomia. Pt was offered elective C- section due to macrosomia but elected IOL. intolerance to labor ( recurrent variable decelerations putting fetus at risk) was noted at 1.5cm dilation - remote from 2nd stage. Hence Section was performed. Procedure well tolerated. Post-operative and course uneventful with patient meeting all post-operative and milestones do far and requesting to be discharged home today Operations or Procedures 1. Induction of Labor starting with cervical ripening with a) Misoprostol. b) Insertion of Cervical ripening Islas Balloon. 2. Primary LSCS. Condition at Discharge: Good Final Diagnosis/Problems List same,nuchal cord Term delivered Discharge Disposition: Home Discharge Instruct/Medications Diet: Regular Diet comment: Routine regular diet rich in fiber, protein, iron and vitamin C with adequate fluid intake. Activity: See Comment Activity comment: Advance as tolerated. No heavy lifting, pushing or straining. Pelvic rest x 6weeks. Balance activities with rest periods Follow Up/Referral: Follow up with OB Provider w/in 1 week. Medications: Ibuprofen 600mg every 6 hours as needed for pain. Continue Vitamin and iron Discharge Statement: self care instructions given. emergency signs and symptoms including pre-eclampsia precautions and signs of PPD reviewed with patient. Follow up with OB Provider in 1 week "Patient was advised to return to the ER or call 911 if any headaches, dizziness, shortness of breath, chest pain, abdominal pain, bleeding, fevers, or worsening of medical condition. Patient was counseled about treatment plan, medications, possible side effects, patientverbalized understanding. All questions were answered to the best of my ability. This discharge took greater then 30 minutes in planning, reviewing documentation, counseling the patient, and discussing with other team members." ASSESSMENT ASSESSMENT Assessment same,nuchal cord Visit Coding OBGYN Date of Service: Feb 23, 2025 Billing Provider: JONELLE TENA CNM WEB GRAPHIC DESIGNER Common Visit Codes: [id number] DISCH DAY <30MIN JONELLE TENAM Feb 23, 2025 03:09
[2025-02-23 07:00] VITALS: BP 129/82; PULSE 86; RESP 16; RESP 18; TEMP 98.7; O2SAT 97; O2SAT 98
[2025-02-23 11:00] VITALS: BP 133/86; PULSE 98; RESP 18; TEMP 35.7; O2SAT 97
== END 2025-02-23 12:18 | disposition home or self-care (01) | DRG 788 ==
LOC: LDRP 20:52 → EDSTATUS 21:41
PROVIDERS: ADMIT Obstetrics & Gynecology; ATTEND Obstetrics & Gynecology
PROC: 10D00Z1 Extraction of Products of Conception, Low, Open Approach (ICD-10-PCS; principal; 2025-02-20 10:46)
DX: O36.63X0 Maternal care for excessive fetal growth, third trimester, not applicable or unspecified (principal); O99.214 Obesity complicating childbirth; O40.3XX0 Polyhydramnios, third trimester, not applicable or unspecified; O24.429 Gestational diabetes mellitus in childbirth, unspecified control; E66.01 Morbid (severe) obesity due to excess calories; O69.81X0 Labor and delivery complicated by cord around neck, without compression, not applicable or unspecified; Z37.0 Single live birth; O76 Abnormality in fetal heart rate and rhythm complicating labor and delivery; O99.824 Streptococcus B carrier state complicating childbirth; O90.81 Anemia of the puerperium; O26.893 Other specified pregnancy related conditions, third trimester; Z3A.39 39 weeks gestation of pregnancy; Z67.41 Type O blood, Rh negative
CPT/HCPCS: 36415; 59025; 76815; 80053; 80307; 81001; 82948; 82962; 85025; 85610; 85730; 86780; 86850; 86870; 86900; 86901; 90384; 94760; 94762; 96360; 96361; 96365; 96366; 96372; 96374; 96375; A4344; G0378; J0131; J0690; J1100; J2405; J2590; J7060